=== PATIENT | female | born 1950 | race Caucasian/White ===

== ENCOUNTER → 2017-01-12 | Outpatient (CLI) | payer OTHER ==
[~2017-01-12] VITALS: Ht 162.6 cm; Wt 156.5 kg
[~2017-01-12] MED LIST: AMLODIPINE BESY10 MG PO; ASPIR 8181 MG PO; BENAZEPRIL-HCT1 EA10 PO; CARTIA XT240 M1 PO; CELEXA20 MG PO; CHLORTHALIDONE25 MG PO; DUONEB 2.5-0.5 M3 ML INH; EFFIENT10 MG PO; IMDUR 30 MG TAB30 M1 PO; LASIX 40 MG TAB40 M1 PO; LIPITOR 20 MG T20 M1 PO; LOPRESSOR50 PO; METFORMIN HCL500 MG PO; MOBIC15 MG PO; MULTAQ400 MG PO; NORCO 5-325 TA1 EACH PO; PRADAXA150 MG PO; PREDNISONE 10 M10 MG PO; PROAIR HFA8.5 GM; PROTONIX40 M1 PO; PULMICORT0.5 MG/21 INH; SPIRIVA INH; TIZANIDINE HCL4 M1 PO; VITAMIN D2000 UNIT PO; XOPENEX 0.63 MG/3 M1
--- NOTE | ~2017-01-12 | EKG ---
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: Harjit MONTALVO : 1950 Requested By: Mauri Goldberg Order Number: [id number] MD: Mauri Goldberg Measurements Intervals [place] Rate: 51 P: 19 [place]: 173 QRS: 19 QRSD: 116 T: 18 QT: 588 QTc: 542 Interpretive Statements Sinus rhythm Nonspecific intraventricular conduction delay Borderline repol abnrm, anterolateral leads Compared to ECG 02/24/2015 07:47:28 Intraventricular conduction delay now present Sinus bradycardia no longer present Sinus arrhythmia no longer present Electronically Signed On 01-12-2017 21:04:36 CDT by Mauri Goldberg [email or web address] <ELECTRONICALLY SIGNED> By: Mauri Goldberg MD 01/12/17 2104 1247 1247 Mauri Goldberg MD /EPI
--- NOTE | ~2017-01-12 | P ---
[facility] [address] [place] [address] PROCEDURE REPORT Name: CHELGABINORONNIE WANDER Room #: REG [facility]#: [id number] Admission: 01/12/17 Attend Phys: Mauri Goldberg MD Discharge: Date of : 48 Report #: [id number] THIS REPORT FOR: //name// CC: Koffi Goldberg DATE OF SERVICE: 01/12/2017 PROCEDURE: Cardioversion. PREOPERATIVE DIAGNOSIS: Atrial fibrillation. POSTOPERATIVE DIAGNOSIS: Atrial fibrillation. DESCRIPTION OF PROCEDURE: After informed consent, the patient was sedated by the anesthesiology service, underwent successful DC cardioversion with a 200 joule shock. There were no complications. CONCLUSIONS: Successful DC cardioversion with confucianist of sinus rhythm. By: 1345 1911 Mauri Goldberg MD /nt
[2017-01-12 10:46] LABS: HEMATOCRIT 39.3 % (37.0-47.0); MCH 31.4 pg (26.0-34.0); MCHC 33.2 g/dL (28.0-37.0); MCV 94.5 fL (80.0-100.0); RBC 4.16 mil/uL (4.20-5.00); RDW 15.2 % (10.5-14.5); WBC 7.9 thou/uL (4.0-11.0)
[2017-01-12 10:55] LABS: CALCIUM 9.2 mg/dL (8.5-10.1); CREATININE 1.1 mg/dL (0.6-1.0); POTASSIUM 3.9 mmol/L (3.5-5.1)
[2017-01-12 10:59] VITALS: BP 166/73
[2017-01-12 11:00] LABS: APTT 47.8 Seconds (24.5-32.8); INR 1.3
[2017-01-12 11:01] LABS: ALBUMIN 3.3 g/dL (3.4-5.0); TOTAL PROTEIN 7.5 g/dL (6.4-8.2)
[2017-01-12 11:04] LABS: PROTIME 13.3 Seconds (9.3-11.4)
== END | disposition home or self-care (01) ==
LOC: CATH 10:17
PROVIDERS: Internal Medicine Cardiovascular Disease
DX: I48.91 Unspecified atrial fibrillation (principal); I10 Essential (primary) hypertension; J45.909 Unspecified asthma, uncomplicated; K21.9 Gastro-esophageal reflux disease without esophagitis; Z98.890 Other specified postprocedural states; E66.01 Morbid (severe) obesity due to excess calories; M19.90 Unspecified osteoarthritis, unspecified site; Z95.1 Presence of aortocoronary bypass graft; J44.9 Chronic obstructive pulmonary disease, unspecified
CPT/HCPCS: 62110; 62900

== ENCOUNTER 2017-01-13 23:10 | Inpatient (IN) | payer OTHER ==
[~2017-01-13] VITALS: Ht 165.1 cm; Wt 154.0 kg
--- NOTE | ~2017-01-13 | HC ---
[facility] [place] [address] [place] [address] CONSULTATION Name: PATRICIORONNIE VIRAMONTES Room #: 424-P ADM IN M.R.#: [id number] Admission: 01/14/17 Attend Phys: Koffi Winston DO Discharge: Date of : 48 Report #: [id number] THIS REPORT FOR: //name// CC: Koffi Manuel DATE OF SERVICE: 01/14/2017 INDICATION: Chest pains. HISTORY OF PRESENT ILLNESS: This is a 66-year-old female presenting with dyspnea and chest discomfort. She has a history of CAD, COPD, paroxysmal atrial fibrillation presenting with dyspnea. The patient reports having dyspnea with mild levels of activity for the past few weeks. She did undergo cardioversion to sinus rhythm this past Sunday, which did not really alleviate her symptom of dyspnea. Over the weekend, she noticed more dyspnea and presented to [facility] for evaluation. She also reported having brief episodes of substernal chest discomfort, occurring at rest. She has noted some intermittent chills and fever. There is no history of PND, orthopnea, nausea or diarrhea. ALLERGIES: ATORVASTATIN. PAST MEDICAL HISTORY: CAD with stent placement to the diagonal artery in February 2015. Known to have severe stenosis in the distal left circumflex, medical therapy is recommended. History of bradycardia. Hypertension, hypercholesterolemia, morbid obesity, COPD on oxygen 2 liters at night, carotid artery disease. Paroxysmal atrial fibrillation, status post cardioversion. MEDICATIONS: Include benazepril/HCTZ 20/12.5 twice a day, metoprolol 25 mg twice a day, Protonix twice a day, Pradaxa 150 mg twice a day, Multaq 400 mg twice a day. SOCIAL HISTORY: Negative for tobacco use. FAMILY HISTORY: Negative for premature CAD. REVIEW OF SYSTEMS: A full 10-point review of systems performed. Only the pertinent positives and negatives are described in the HPI. PHYSICAL EXAMINATION: VITAL SIGNS: Blood pressure is 160/80, heart rate is 78 beats per minute. GENERAL APPEARANCE: This is an overweight female in no acute respiratory distress. HEAD AND EYES: Normocephalic. Sclerae are anicteric. ENT: Oral mucosa moist. [facility] [address] [place] [address] CONSULTATION Name: RONNIE CURRY Room #: 424-P ADM IN .R.#: [id number] Admission: 01/14/17 Attend Phys: Koffi Winston DO Discharge: Date of : 48 Report #: [id number] NECK: Supple, no JVD. LUNGS: Diminished breath sounds at the bases. CARDIAC: S1, S2 positive; 1/6 systolic murmur. ABDOMEN: Soft, bowel sounds positive. Nontender. EXTREMITIES: No cyanosis, trace bilateral lower extremity edema. NEUROLOGIC: Alert and oriented times 3 ECG reveals sinus rhythm, nonspecific IVCD, nonspecific T-wave abnormalities. LABORATORY VALUES: Troponin is negative. Sodium is 133, creatinine is 1.1. ASSESSMENT AND PLAN: 1. Respiratory failure, rule out chronic obstructive pulmonary disease exacerbation, await pulmonary consultation. Continue with antibiotics. 2. Chest pain, known to have a severe occlusion of the mid/distal circumflex artery, maybe related to hypoxic episodes. Would continue with medical therapy at this time. Since she recently underwent a cardioversion, I would not want to hold the anticoagulation medication. We will add longacting nitrates. 3. Paroxysmal atrial fibrillation. Continue with Pradaxa and Multaq. 4. Hypertension. Resume the LUCHO inhibitor. 5. Gastroesophageal reflux disease. Continue with Protonix. Thank you for allowing me to participate in the care of your patient. <ELECTRONICALLY SIGNED> By: Ivan Leach MD 01/15/17 0830 1118 1241 Ivan Leach MD /nt
--- NOTE | ~2017-01-13 | EKG ---
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: heena : 1950 Requested By: Sydni Montero Order Number: [id number] MD: Mauri Goldberg Measurements Intervals [place] Rate: 78 P: 41 ME: 180 QRS: 21 QRSD: 114 T: 12 QT: 464 QTc: 529 Interpretive Statements Sinus rhythm Borderline intraventricular conduction delay Borderline T wave abnormalities Compared to ECG 01/12/2017 12:47:22 T-wave abnormality now present Electronically Signed On 01-14-2017 11:13:28 CDT by Mauri Goldberg [email or web address] <ELECTRONICALLY SIGNED> By: Mauri Goldberg MD 01/14/17 1113 1052 1052 Mauri Goldberg MD /EPI
--- NOTE | ~2017-01-13 | HC ---
[facility] [place] [address] [place] [address] CONSULTATION Name: RONNIE CURRY Room #: 424-P ADM IN M.R.#: [id number] Admission: 01/14/17 Attend Phys: Koffi Winston DO Discharge: Date of : 48 Report #: [id number] THIS REPORT FOR: //name// CC: Koffi Manuel DATE OF SERVICE: 01/14/2017 PRIMARY CARE PHYSICIAN: Dr. Koffi Manuel. REFERRAL PHYSICIAN: Dr. Winston. REASON FOR REFERRAL: COPD. HISTORY OF PRESENT ILLNESS: The patient is a 66-year-old white female who presented to the [facility] with progressive dyspnea. She was subsequently transferred to [facility]. The patient has COPD. A pulmonary consultation was requested. The patient states that she has been short of breath, on and off for the past several weeks. The patient is followed longitudinally by Dr. Francesco Jenkins for COPD. She states that she has been having trouble over the last few weeks with increasing dyspnea on exertion. She was recently seen by her Cardiology, in fact last Sunday for cardioversion for atrial fibrillation. She did fairly well and was discharged home. Over the weekend, her dyspnea progressively worsened. The patient otherwise denies any fever, night sweats, chest pain or productive cough. The patient did note chills. Otherwise, no recent nausea or vomiting. PAST MEDICAL HISTORY: Notable for COPD/asthma overlap syndrome, hypertension, coronary artery disease with history of bradycardia, hyperlipidemia, gastroesophageal reflux disease, morbid obesity. Previous echocardiogram showed ejection fraction of 65%. Chronic back pain, osteoarthritis. ANGEL, on CPAP. Atrial fibrillation as mentioned above, undergone cardioversion on 01/12/2017. PAST SURGICAL HISTORY: Gastroplasty which was stated to be unsuccessful. Left total knee replacement, laparoscopic cholecystectomy, right knee metal plate placement. ALLERGIES: ATORVASTATIN WHICH CAUSES SEVERE RASH. HOME MEDICATIONS: Include benazepril, tizanidine, Lopressor, [place] 5 mg, ProAir, Xopenex nebulizer 0.63 mg p.r.n., Protonix, Pradaxa, Multaq, Spiriva. FAMILY HISTORY: Noncontributory. SOCIAL HISTORY: The patient is a lifetime nonsmoker, drinks occasional wine. [address] [address] CONSULTATION Name: RONNIE CURRY Room #: 424-P [facility] IN ..#: [id number] Admission: 01/14/17 Attend Phys: Koffi Winston DO Discharge: Date of : 48 Report #: [id number] She is . FAMILY HISTORY: Notable for mother who at the age of 68 due to heart disease. Father at the age of 45 due to myocardial infarction. REVIEW OF SYSTEMS: As mentioned above. Otherwise, 10-point system review negative. PHYSICAL EXAMINATION: GENERAL: She is awake, alert, in no distress. VITAL SIGNS: Temperature is 98 degrees Fahrenheit, pulse is 76, respiratory rate is 20, blood pressure is 160/80 mmHg, saturation is 97%. HEENT: Normocephalic, atraumatic. NECK: Supple, without any lymphadenopathy or thyromegaly. CHEST: Breath sounds are fair with mild expiratory wheezes. No rales. CARDIOVASCULAR: Normal S1, S2. There are no murmurs or gallop. There is no JVD. There is no carotid bruit. Pulses are 2+/4+ bilaterally. ABDOMEN: Soft, nontender, obese. No organomegaly or masses felt. GENITOURINARY: Deferred. RECTAL: Deferred. EXTREMITIES: There is no edema, cyanosis or clubbing. DIAGNOSTIC DATA: CT chest angiogram shows no evidence of pulmonary embolus. Atelectasis noted in the lingula in the left lower lobe, cardiomegaly is noted. Troponin is normal. D-dimer is 0.57. EKG shows borderline T-wave abnormalities, otherwise no acute ischemic changes. TSH is normal. Electrolytes are normal except for sodium 133, potassium 3.8, BUN 25, creatinine is 1.1. Liver function test is grossly unremarkable. WBC 7800, hemoglobin is 12.3, platelets are normal. Albumin 3.0. IMPRESSION: 1. Acute hypoxic respiratory failure in this 66-year-old white female, secondary to exacerbation of COPD/asthma. CT chest also suggest pulmonary edema. Acute on chronic heart failure is also suggested. 2. COPD/asthma overlap syndrome. 3. ANGEL on CPAP. The patient also wears 2 liters of O2 at night. 4. Probable acute on chronic diastolic heart failure. 5. Paroxysmal atrial fibrillation, on chronic anticoagulation, currently on Pradaxa and Multaq. 6. Chest pain as mentioned above. 7. Hypertension. 8. Gastroesophageal reflux disease. 9. Morbid obesity. RECOMMENDATION: Would suggest bronchodilators, corticosteroids, and broad spectrum antibiotics. DVT and GI prophylaxis will be addressed. Continue home [facility] [address] [place] [address] CONSULTATION Name: RONNIE CURRY Room #: 424-P ADM IN M.R.#: [id number] Admission: 01/14/17 Attend Phys: Koffi Winston DO Discharge: Date of : 48 Report #: [id number] CPAP during sleep and p.r.n. Cardiology has been consulted. The patient would benefit from counseling regarding dietary program to achieve an ideal body weight. Thank you for this consultation. <ELECTRONICALLY SIGNED> By: Juaquin Almazan MD 01/15/17 1920 1607 1748 Juaquin Almazan MD /nt
[~2017-01-13 23:10] MED LIST changes: -DUONEB 2.5-0.5 M3 ML INH; -IMDUR 30 MG TAB30 M1 PO; -LASIX 40 MG TAB40 M1 PO; -METFORMIN HCL500 MG PO; -PREDNISONE 10 M10 MG PO; -PULMICORT0.5 MG/21 INH
[2017-01-14 01:46] VITALS: BP 164/65
[2017-01-14 03:12] VITALS: BP 160/76
[2017-01-14 03:31] LABS: HEMOGLOBIN 12.3 gm/dL (12.0-15.0); MCH 31.1 pg (26.0-34.0); MCHC 33.3 g/dL (28.0-37.0); MCV 93.5 fL (80.0-100.0); RBC 3.96 mil/uL (4.20-5.00); RDW 15.3 % (10.5-14.5); WBC 8.7 thou/uL (4.0-11.0)
[2017-01-14 03:38] LABS: CALCIUM 8.8 mg/dL (8.5-10.1); CREATININE 1.1 mg/dL (0.6-1.0); POTASSIUM 3.8 mmol/L (3.5-5.1)
[2017-01-14 03:51] LABS: TOTAL BILIRUBIN 1.2 mg/dL (<0.1-1.0); TOTAL PROTEIN 7.2 g/dL (6.4-8.2)
[2017-01-14 07:24] VITALS: BP 166/78
[2017-01-14 12:25] VITALS: BP 185/87
[2017-01-14 15:06] VITALS: BP 162/79
[2017-01-14 20:00] VITALS: BP 166/80
[2017-01-15 04:37] VITALS: BP 139/76
[2017-01-15 06:16] LABS: HEMATOCRIT 32.3 % (37.0-47.0); HEMOGLOBIN 10.7 gm/dL (12.0-15.0); MCH 31.7 pg (26.0-34.0); RBC 3.37 mil/uL (4.20-5.00); RDW 15.7 % (10.5-14.5)
[2017-01-15 06:18] LABS: MANUAL DIFF YES
[2017-01-15 06:31] LABS: CALCIUM 8.5 mg/dL (8.5-10.1); CREATININE 1.2 mg/dL (0.6-1.0); POTASSIUM 4.2 mmol/L (3.5-5.1)
[2017-01-15 07:47] VITALS: BP 149/80
[2017-01-15 08:01] LABS: ABSOLUTE NEUTROPHILS 11.3 thou/uL (1.4-8.2); TOTAL CELL COUNT 100
[2017-01-15 08:02] LABS: ANISOCYTOSIS SLIGHT; POLYCHROMASIA OCCASIONAL
[2017-01-15 08:46] LABS: PLATELET COUNT 150 thou/uL (150-400); PLATELET ESTIMATE NORMAL
[2017-01-15 15:52] VITALS: BP 113/56
[2017-01-15 20:00] VITALS: BP 144/74
[2017-01-16 04:00] VITALS: BP 127/66
[2017-01-16] MEDS ORDERED: DUONEB 2.5-0.5 M3 ML INH (14:48)
[2017-01-16] MEDS ORDERED: IMDUR 30 MG TAB30 M1 PO (14:49)
[2017-01-16] MEDS ORDERED: LASIX 40 MG TAB40 M1 PO (14:49)
[2017-01-16] MEDS ORDERED: PULMICORT0.5 MG/21 INH (14:49)
[2017-01-16] MEDS ORDERED: METFORMIN HCL500 MG PO (14:50)
[2017-01-16] MEDS ORDERED: PREDNISONE 10 M10 MG PO (14:50)
[2017-01-16 15:20] VITALS: BP 156/81
== END 2017-01-16 16:30 | disposition home or self-care (01) | DRG 291 ==
LOC: 4E 23:10 → ENTRNSPT 01-16 15:38 → EDTRNSPTSTS 01-16 15:43 → 4E 01-16 16:30
PROVIDERS: Family Medicine; Nurse Practitioner Family
DX: I11.0 Hypertensive heart disease with heart failure (principal); J96.01 Acute respiratory failure with hypoxia; J44.1 Chronic obstructive pulmonary disease with (acute) exacerbation; J45.901 Unspecified asthma with (acute) exacerbation; Z68.43 Body mass index [BMI] 50.0-59.9, adult; I50.33 Acute on chronic diastolic (congestive) heart failure; I25.10 Atherosclerotic heart disease of native coronary artery without angina pectoris; Z96.652 Presence of left artificial knee joint; E78.5 Hyperlipidemia, unspecified; E66.01 Morbid (severe) obesity due to excess calories; K21.9 Gastro-esophageal reflux disease without esophagitis; M19.90 Unspecified osteoarthritis, unspecified site; G47.33 Obstructive sleep apnea (adult) (pediatric); I48.0 Paroxysmal atrial fibrillation; E78.00 Pure hypercholesterolemia, unspecified; Z79.01 Long term (current) use of anticoagulants; Z87.01 Personal history of pneumonia (recurrent); Z88.8 Allergy status to other drugs, medicaments and biological substances; Z90.49 Acquired absence of other specified parts of digestive tract; Z95.5 Presence of coronary angioplasty implant and graft
CPT/HCPCS: 10084

== ENCOUNTER → 2017-07-25 | Outpatient (CLI) | payer OTHER ==
[~2017-07-25] VITALS: Ht 165.1 cm; Wt 144.7 kg
[~2017-07-25] MED LIST changes: +BENAZEPRIL HCL10 MG PO; +DUONEB 2.5-0.5 M3 ML INH; +FOSAMAX 70 MG T70 MG PO; +IMDUR 30 MG TAB30 M1 PO; +LASIX 40 MG TAB40 M1 PO; +METFORMIN HCL500 MG PO; +PREDNISONE 10 M10 MG PO; -PROAIR HFA8.5 GM; +PROAIR HFA8.5 GM INH; +PULMICORT0.5 MG/21 INH; +TOPROL XL25 MG PO; +TRELEGY ELLIPT1 EACH INH; +VITAMIN D1000 UNI1 PO; +VITAMIN D250000 UNIT PO; +XARELTO20 MG PO
--- NOTE | ~2017-07-25 | EKG ---
[address] [address] ELECTROCARDIOGRAM REPORT Name: RONNIE CURRY Room #: REG [facility]#: [id number] Admission: 07/25/17 Attend Phys: Mauri Goldberg MD Discharge: Date of : 48 Report #: [id number] THIS REPORT FOR: //name// [facility] Test Date: 2017-07-25 Test Time: 10:52:17 Pat Name: RONNIE CURRY Department: Room: Gender: F Director [employer]: CHARLES : 1950 Requested By: Mauri Goldberg Order Number: [id number] MD: Vj Moise Measurements Intervals [place] Rate: 63 P: 7 MD: 57 QRS: 17 QRSD: 118 T: 7 QT: 503 QTc: 516 Interpretive Statements Sinus rhythm Short MD interval Nonspecific intraventricular conduction delay Nonspecific ST and T wave abnormality Prolonged QT interval Compared to ECG 01/14/2017 10:52:48 QT interval has lengthened nonspecific change in the ST and T-wave segments Electronically Signed On 07-25-2017 16:50:12 CDT by Vj Moise [email or web address] <ELECTRONICALLY SIGNED> By: Vj Moise MD, FAC 07/25/17 1650 1052 1052 Vj Moise MD, [facility] /EPI
[2017-07-25 10:24] VITALS: BP 179/79
[2017-07-25 10:37] LABS: HEMOGLOBIN 12.9 gm/dL (12.0-15.0); MCH 30.9 pg (26.0-34.0); MCV 93.7 fL (80.0-100.0); RBC 4.16 mil/uL (4.20-5.00); RDW 14.7 % (10.5-14.5); WBC 8.2 thou/uL (4.0-11.0)
[2017-07-25 10:43] LABS: CALCIUM 9.4 mg/dL (8.5-10.1); CREATININE 1.2 mg/dL (0.6-1.0); POTASSIUM 4.3 mmol/L (3.5-5.1)
[2017-07-25 10:53] LABS: INR 1.3
[2017-07-25 10:58] LABS: PROTIME 12.9 Seconds (9.3-11.4)
[2017-07-25 10:59] LABS: APTT 46.9 Seconds (24.5-32.8)
== END | disposition home or self-care (01) ==
LOC: CATH 06:38
PROVIDERS: Internal Medicine Cardiovascular Disease
DX: I48.91 Unspecified atrial fibrillation (principal); Z53.8 Procedure and treatment not carried out for other reasons; I11.0 Hypertensive heart disease with heart failure; I25.10 Atherosclerotic heart disease of native coronary artery without angina pectoris; I50.9 Heart failure, unspecified; E78.5 Hyperlipidemia, unspecified; J44.9 Chronic obstructive pulmonary disease, unspecified; E11.9 Type 2 diabetes mellitus without complications; G47.33 Obstructive sleep apnea (adult) (pediatric); M19.90 Unspecified osteoarthritis, unspecified site; E66.01 Morbid (severe) obesity due to excess calories; Z90.49 Acquired absence of other specified parts of digestive tract; Z98.890 Other specified postprocedural states; Z95.5 Presence of coronary angioplasty implant and graft; Z79.899 Other long term (current) drug therapy

== ENCOUNTER → 2017-08-14 | Outpatient (CLI) | payer OTHER ==
[~2017-08-14] MED LIST changes: +PROAIR HFA8.5 GM; -PROAIR HFA8.5 GM INH; -TOPROL XL25 MG PO; -VITAMIN D1000 UNI1 PO; -XARELTO20 MG PO
== END ==
LOC: RAD 06:41 → LABMALL 06:41 → RAD 16:04
PROVIDERS: Surgery
DX: I10 Essential (primary) hypertension (principal); I48.91 Unspecified atrial fibrillation; M47.896 Other spondylosis, lumbar region; E66.01 Morbid (severe) obesity due to excess calories; G47.33 Obstructive sleep apnea (adult) (pediatric); R63.4 Abnormal weight loss; J44.9 Chronic obstructive pulmonary disease, unspecified; E11.9 Type 2 diabetes mellitus without complications; L51.1 Stevens-Johnson syndrome; E78.5 Hyperlipidemia, unspecified; R10.10 Upper abdominal pain, unspecified; Z98.890 Other specified postprocedural states; Z90.49 Acquired absence of other specified parts of digestive tract

== ENCOUNTER → 2017-08-31 | Outpatient (CLI) | payer OTHER | LOC: PET 06:52 | DX: R59.1 Generalized enlarged lymph nodes (principal) ==

== ENCOUNTER → 2017-09-18 | Outpatient (CLI) | payer OTHER ==
[~2017-09-18] VITALS: Ht 165.1 cm; Wt 143.8 kg
[~2017-09-18] MED LIST changes: -PROAIR HFA8.5 GM; +PROAIR HFA8.5 GM INH; +TOPROL XL25 MG PO; +VITAMIN D1000 UNI1 PO; +XARELTO20 MG PO
--- NOTE | ~2017-09-18 | O ---
[address] [address] OPERATIVE REPORT Name: RONNIE CURRY Room #: REG [facility]#: [id number] Admission: 09/18/17 Attend Phys: Alan Hahn MD, F Discharge: Date of : 48 Report #: [id number] THIS REPORT FOR: //name// CC: FAM unknown Koffi Burns DATE OF SERVICE: 09/18/2017 PREOPERATIVE DIAGNOSES: 1. Super morbid obesity (body mass index 53), status post previous unknown bariatric operation. 2. Obstructive sleep apnea. 3. Chronic obstructive pulmonary disease. 4. Type 2 diabetes mellitus. 5. Atrial fibrillation. 6. Hypertension. 7. Hyperlipidemia. POSTOPERATIVE DIAGNOSES: 1. Super morbid obesity (body mass index 53), status post previous unknown bariatric operation. 2. Obstructive sleep apnea. 3. Chronic obstructive pulmonary disease. 4. Type 2 diabetes mellitus. 5. Atrial fibrillation. 6. Hypertension. 7. Hyperlipidemia. PROCEDURE: Esophagogastroduodenoscopy. SURGEON: Alan Hahn M.D. ANIMAL SKINNER: None. ANESTHESIA: Sedation/monitored anesthetic care (90 mg propofol, 35 mg ketamine). ESTIMATED BLOOD LOSS: None. SPECIMENS: None. COMPLICATIONS: None appreciated. INDICATIONS FOR PROCEDURE: This is a super morbidly obese female, patient of [address] [address] OPERATIVE REPORT Name: RONNIE CURRY Room #: REG [facility]#: [id number] Admission: 09/18/17 Attend Phys: Alan Hahn MD, F Discharge: Date of : 48 Report #: [id number] Koffi Manuel, who began having difficulty with obesity post-. She ultimately underwent a bariatric operation in the , which she describes as a stapling-type operation. She denies having had a gastric bypass. She lost over 100 pounds before gaining her weight back slowly. She improved her weight to as low as 192 pounds, with a maximum weight of 345 pounds. She weighed 321 pounds at her last office visit. Prior to and since her bariatric operation, she has tried numerous weight loss programs and plans, including specialized diets, exercises and medications. Any amount of weight she had lost, she quickly regained plus additional weight after stopping the modality. She was evaluated with barium upper GI, which showed surgical changes, but an otherwise normal-appearing stomach that was not significantly decreased in size. She also underwent a CT of the abdomen and pelvis, which showed a nodule in the portacaval region. This was followed by a PET CT, which showed reactive lymphadenopathy changes as a result of her previous operation. The patient presents now for further evaluation of her stomach with an EGD. OPERATIVE FINDINGS: The esophagus was normal down to the GE junction and Z-line measured at 38 cm from the teeth. The Z line was slightly irregular; however, there were no overt esophagitis changes. Upon entrance into the fundus/upper body of the stomach, the stomach itself did seem slightly constricted. I was able to advance the scope down into the more distal stomach, where the body and prepyloric area appeared otherwise normal, with mild inflammatory changes at the pylorus. The duodenum was normal down to the third portion. There were no polyps, masses, diverticula or ulcers seen. I also was able to retroflex the scope within the antrum of the stomach and had visualization of the lower body and upper body, where more surgical changes were present. A permanent suture was seen endoluminally in the mid body of the stomach and upon closer inspection, an associated staple was also present. Despite her having had a previous stapling-type operation, I was able to retroflex the scope enough in the upper body of the stomach to see the cardia. Hiatal hernia was not appreciable. Overall, the size of the stomach did not seem to be significantly decreased from her previous bariatric operation. DESCRIPTION OF PROCEDURE IN DETAIL: After the risks, benefits and expectations of the operation were discussed in detail with the patient, informed consent was obtained. The patient was identified in the preoperative holding area. She was then taken to the procedure room and she was placed in the left lateral decubitus position. A bite block was placed. A time-out was performed to identify the correct patient and procedure. The patient was then given sedation by Anesthesia and the gastroscope was inserted into the patient's oropharynx and passed down the esophagus into the stomach and beyond the pylorus to the third portion of the duodenum. The scope was then slowly withdrawn. Findings are as noted above. With the scope withdrawn into the antrum of the stomach, the scope was retroflexed and a retrograde view of the lower body, upper body and cardia was seen. The scope was then straightened and slowly withdrawn. The suture was measured at 45 cm from the teeth. The stomach was decompressed and the scope [facility] [address] [place] [address] OPERATIVE REPORT Name: RONNIE CURRY Room #: REG [facility]#: [id number] Admission: 09/18/17 Attend Phys: Alan Hahn MD, F Discharge: Date of : 48 Report #: [id number] was slowly withdrawn through the normal-appearing esophagus. The patient tolerated the procedure well. She was awakened and returned to the holding area in stable condition. IMPRESSION: My recommendation is that the patient keep her scheduled appointment with me. She may be a candidate for revisional sleeve gastrectomy. By: 1044 1148 Alan Hahn MD, FACS /nt
== END | disposition home or self-care (01) ==
LOC: GI 06:57
DX: E66.01 Morbid (severe) obesity due to excess calories (principal); I10 Essential (primary) hypertension; E11.9 Type 2 diabetes mellitus without complications; I48.91 Unspecified atrial fibrillation; E78.5 Hyperlipidemia, unspecified; J44.9 Chronic obstructive pulmonary disease, unspecified; G47.33 Obstructive sleep apnea (adult) (pediatric); K21.9 Gastro-esophageal reflux disease without esophagitis; M19.90 Unspecified osteoarthritis, unspecified site; Z79.899 Other long term (current) drug therapy; Z79.01 Long term (current) use of anticoagulants; Z68.43 Body mass index [BMI] 50.0-59.9, adult; Z98.890 Other specified postprocedural states; Z98.84 Bariatric surgery status; Z95.5 Presence of coronary angioplasty implant and graft; Z96.653 Presence of artificial knee joint, bilateral; Z90.49 Acquired absence of other specified parts of digestive tract; Z88.8 Allergy status to other drugs, medicaments and biological substances
CPT/HCPCS: 62110; 62900

== ENCOUNTER → 2017-12-04 | Outpatient (CLI) | payer OTHER ==
[~2017-12-04] MED LIST changes: +BENAZEPRIL 10 M10 MG PO; +CENTRUM SILVER1 EAC4 PO
--- NOTE | ~2017-12-04 | EKG ---
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 : 1950 Requested By: Alan Hahn Order Number: [id number] MD: Measurements Intervals [place] Rate: 81 P: [place]: QRS: 17 QRSD: 115 T: 183 QT: 386 QTc: 448 Interpretive Statements Atrial fibrillation LVH with secondary repolarization abnormality Compared to ECG 07/25/2017 10:52:17 Left ventricular hypertrophy now present Early repolarization now present Sinus rhythm no longer present Short [place] interval no longer present Intraventricular conduction delay no longer present ST (T wave) deviation no longer present Prolonged QT interval no longer present [email or web address] By: 1209 1209 [facility] [place] /EPI
[2017-12-04 13:00] LABS: ABSOLUTE NEUTROPHILS 4.7 thou/uL (1.4-8.2); BASOPHILS 1.3 % (0.0-2.0); EOSINOPHILS 1.8 % (0.0-3.0); HEMATOCRIT 43.7 % (37.0-47.0); HEMOGLOBIN 14.7 gm/dL (12.0-15.0); LYMPHOCYTES 26.1 % (24.0-44.0); MCH 31.7 pg (26.0-34.0); MCHC 33.8 g/dL (28.0-37.0); MCV 94.1 fL (80.0-100.0); MONOCYTES 7.3 % (1.0-8.0); PLATELET COUNT 216 thou/uL (150-400); POLYS 63.5 % (36.0-66.0); RBC 4.65 mil/uL (4.20-5.00); RDW 14.6 % (10.5-14.5); WBC 7.5 thou/uL (4.0-11.0)
[2017-12-04 13:14] LABS: ALBUMIN 3.7 g/dL (3.4-5.0); CALCIUM 9.5 mg/dL (8.5-10.1); CREATININE 1.1 mg/dL (0.6-1.0); POTASSIUM 4.7 mmol/L (3.5-5.1); TOTAL BILIRUBIN 0.7 mg/dL (<0.1-1.0); TOTAL PROTEIN 7.4 g/dL (6.4-8.2)
== END ==
LOC: CV 11:43
PROVIDERS: Surgery
DX: Z01.818 Encounter for other preprocedural examination (principal); I48.91 Unspecified atrial fibrillation

== ENCOUNTER 2018-01-16 12:49 | Inpatient (IN) | payer OTHER ==
[~2018-01-16] VITALS: Ht 162.6 cm; Wt 133.9 kg
--- NOTE | ~2018-01-16 | H ---
[facility] [place] [address] [place] [address] HISTORY AND PHYSICAL Name: PATRICIORONNIE VIRAMONTES Room #: 352-P ADM IN M.R.#: [id number] Admission: 01/16/18 Attend Phys: Giovanna Paredes Discharge: Date of : 48 Report #: [id number] THIS REPORT FOR: //name// CC: Isaac Manuel DATE OF SERVICE: 01/16/2018 CHIEF COMPLAINT: Abdominal pain. HISTORY OF PRESENT ILLNESS: The patient is a 67-year-old female admitted from [facility] for treatment of abdominal pain and related infection. Her history is complicated and that she had undergone laparoscopic sleeve gastrectomy with EGD and laparoscopic lysis of adhesions on 12/06. She then discharged home and unfortunately suffered a fall and then developed abdominal pain. She was readmitted to the hospital with diagnosis of sepsis related to GI bleed post-gastric sleeve procedure and intra-abdominal abscess. There was concern of endovascular leak. She was attempted at [facility] for EGD placement of stent over the gastric leak area, but due to inflammation and postoperative changes, this was not accessible. She then transferred to the LTAC facility for ongoing care with IV antibiotics and TPN. She is gradually stabilized and improved to some degree. She still remains n.p.o. and the hope now is that with improvement of abdominal findings on CT, she could proceed with a jejunostomy tube placement for distal feeding and medication access. She is admitted for surgical and ID evaluation. PAST MEDICAL HISTORY: Coronary artery disease, COPD, obstructive sleep apnea and uses CPAP, hypertension, paroxysmal AFib, carotid stenosis, she had a history of GI bleed. PAST SURGICAL HISTORY: As above. FAMILY HISTORY: Noncontributory. SOCIAL HISTORY: No chronic alcohol or tobacco use. ALLERGIES: LIPITOR and she is intolerant to STATINS. MEDICATIONS: Please see the list from the facility, it is unavailable currently. REVIEW OF SYSTEMS: Denies headache, chest pain, shortness of breath, nausea, vomiting, dysuria, myalgias, syncope or fall. OBJECTIVE: VITAL SIGNS: Per the nursing note. [facility] [address] [place] [address] HISTORY AND PHYSICAL Name: PATRICIORONNIE Room #: 352-P [facility] IN .R.#: [id number] Admission: 01/16/18 Attend Phys: Giovanna Paredes Discharge: Date of : 48 Report #: [id number] GENERAL: She is awake and alert, in no distress, sitting on the edge of the bed. HEAD AND NECK: Unremarkable. LUNGS: Clear. HEART: Regular. ABDOMEN: Obese, soft, normoactive bowel sounds. EXTREMITIES: No cyanosis, clubbing or edema. NEUROLOGIC: Motor strength 4/5 throughout. ASSESSMENT: 1. Abdominal pain. 2. Intra-abdominal abscess. 3. Recent gastric sleeve gastrectomy with bowel leak. 4. Chronic obstructive pulmonary disease. 5. Hypertension. 6. Obstructive sleep apnea, on CPAP. PLAN: I have spoken with Dr. Kan Hummel regarding the plan and we will obtain a CT of the abdomen to gauge the remaining intra-abdominal abscesses. Dr. Hahn will assess her and apparently has her scheduled for jejunostomy tube placement. Unasyn and other medications to continue. <ELECTRONICALLY SIGNED> By: Ace Thakur MD 01/17/18 1058 1350 1414 Ace Thakur MD /nt
--- NOTE | ~2018-01-16 | D ---
[facility] [place] [address] DISCHARGE SUMMARY Name: PATRICIORONNIE VIRAMONTES Room #: 363-P [facility] IN M.R.#: [id number] Admission: 01/16/18 Attend Phys: Giovanna Paredes Discharge: 01/29/18 Date of : 48 Report #: [id number] THIS REPORT FOR: //name// CC: Isaac Manuel FINAL DIAGNOSES: 1. Abdominal pain. 2. Resolving intra-abdominal abscess. 3. Gastrointestinal bowel leak due to previous gastroplasty. 4. Morbid obesity. 5. Moderate protein-calorie malnutrition. 6. Anemia of chronic disease. 7. Morbid obesity. HOSPITAL COURSE: The patient was admitted electively for placement of a jejunostomy tube for nutritional access. She has previously undergone treatment for intra-abdominal abscess related to previous gastroplasty. This was treated at [facility] facility. Her stay here was planned for placement of a J-tube, which Dr. Hhan placed. The following day, it had migrated out of position and she went back to the OR for revision. She had no other complications during her stay. She finished her course of IV antibiotics and converted to oral. A CHRIST drain was left in place. TPN was discontinued. Therapies were ordered. She had no other complications. PHYSICAL EXAMINATION: GENERAL: On the day of discharge, she was awake and alert. LUNGS: Clear. HEART: Regular. ABDOMEN: Soft, normoactive bowel sounds. She was tolerating tube feeding. EXTREMITIES: No edema. DISPOSITION: She is discharged to [facility] n.p.o. status with jejunostomy tube feeding. I signed her transfer medication. She will have in-house physician manage her care and physical and occupational therapy. Follow up with Dr. Hahn in 2 weeks for the next stage of her treatment. ADDENDUM Her discharge was held on 01/22/2018 due to J-tube malfunction. She had to go back to the OR for revision. Please see those notes. Following this, she did well without any incident. She was watched another week and the tube feeding was flowing without complication. Other medications were continued. PHYSICAL EXAMINATION: On the day of discharge: GENERAL: She was awake and alert. [address] [address] DISCHARGE SUMMARY Name: RONNIE CURRY Room #: 363-P [facility] IN ..#: [id number] Admission: 01/16/18 Attend Phys: Giovanna Paredes Discharge: 01/29/18 Date of : 48 Report #: [id number] VITAL SIGNS: Stable. LUNGS: Clear. HEART: Regular. ABDOMEN: Soft, normoactive bowel sounds. EXTREMITIES: No edema and J-tube is in place. DISPOSITION: Again, she is discharged to [facility], n.p.o. with tube feeding. PT, OT. Follow up with Dr. Hahn in a couple of weeks. Meds are Augmentin twice a day for 5 days, hydrocodone elixir p.r.n., Pepcid, scopolamine patch. <ELECTRONICALLY SIGNED> By: Ace Thakur MD 02/04/18 1250 1057 [id number] Ace Thakur MD /nt
--- NOTE | ~2018-01-16 | O ---
[facility] [place] [place] [address] OPERATIVE REPORT Name: RONNIE CURRY Room #: 352-P ADM IN M.R.#: [id number] Admission: 01/16/18 Attend Phys: Giovanna Paredes Discharge: Date of : 48 Report #: [id number] THIS REPORT FOR: //name// CC: Dante Manuel MD DATE OF SERVICE: 01/17/2018 SURGEON: Alan Hahn MD RN OBGYN: Reynaldo Adrian MD PREOPERATIVE DIAGNOSES: 1. Need for enteral nutrition. 2. Intraabdominal abscess with gastric leak. 3. Status post revisional bariatric surgery. 4. Super morbid obesity (body mass index 51). 5. Chronic obstructive pulmonary disease. 6. Coronary artery disease. 7. Atrial fibrillation. 8. Hypertension. 9. Congestive heart failure. 10. Gastroesophageal reflux disease. 11. Obstructive sleep apnea with CPAP use. POSTOPERATIVE DIAGNOSES: 1. Need for enteral nutrition. 2. Intraabdominal abscess with gastric leak. 3. Status post revisional bariatric surgery. 4. Super morbid obesity (body mass index 51). 5. Chronic obstructive pulmonary disease. 6. Coronary artery disease. 7. Atrial fibrillation. 8. Hypertension. 9. Congestive heart failure. 10. Gastroesophageal reflux disease. 11. Obstructive sleep apnea with CPAP use. PROCEDURE: 1. Diagnostic laparoscopy. 2. Laparoscopic assisted jejunostomy placement. ANESTHESIA: General endotracheal anesthesia and local anesthetic. [facility] [place] [address] OPERATIVE REPORT Name: RONNIE CURRY Room #: 352-P ADM IN M.R.#: [id number] Admission: 01/16/18 Attend Phys: Giovanna Paredes Discharge: Date of : 48 Report #: [id number] ESTIMATED BLOOD LOSS: 5 mL. SPECIMEN: None. COMPLICATIONS: None appreciated. INDICATIONS FOR PROCEDURE: This is a 67-year-old female patient who has a remote history of a vertical stapled gastroplasty in the 1970s. She lost weight initially from the operation; however, she regained a significant portion of her weight back plus additional weight. She was ultimately cleared for revisional laparoscopic bariatric surgery. She underwent surgery, which took place approximately 8 weeks ago. She was hospitalized for over a week after her operation as she was having difficulty swallowing, but ultimately was able to take in fluids. This was confirmed both on her postoperative day #1 swallow study as well as on an oral contrast CT scan 5-6 days after her operation. After her dismissal, she returned to the hospital with abdominal pain and imaging studies showed a proximal gastric staple line leak. Soon thereafter, she was sent for EGD with stent placement; however, this was unsuccessful as the gastric lumen had been obliterated secondary to inflammatory change from the abscess. The abscess had been drained by Interventional Radiology. She was transferred to [facility] (a long-term acute care facility) where she received ongoing TPN and was kept strictly n.p.o. Another attempt at endoscopic stent placement was unsuccessful 4 weeks later. The patient has been transferred to [facility] and presents now for laparoscopic-assisted jejunostomy placement as long-term TPN is not recommended. DESCRIPTION OF PROCEDURE IN DETAIL: After the risks, benefits and expectations of the operation were discussed in detail with the patient, informed consent was obtained. The patient was identified in the preoperative holding area. The patient was given IV antibiotics as documented in the chart in line with [facility] metrics. The patient was then taken to the operating room and she was placed in the supine position. SCDs were placed on the patient's bilateral lower extremities and pneumatic compression was initiated. The patient was then given IV sedation and she was intubated without incident. Her abdomen was prepped and draped in the standard sterile fashion. A time-out was performed to identify the correct patient and procedure. Local anesthetic was infiltrated into the skin and subcutaneous tissue in the right subcostal area where a small transverse incision was made. A 5 mm Visiport was placed intraperitoneally with a 0-degree angled laparoscope. Pneumoperitoneum was achieved with insufflation of carbon dioxide to 15 mmHg. A 30-degree angled laparoscope was then inserted. Additional 5 mm ports were placed in the right lateral and right lower quadrant under direct visualization after local anesthetic was infiltrated into the skin and subcutaneous tissue and appropriately sized incisions were made. Upon entering the abdominal cavity, intraabdominal adhesions were present. In order to gain access to the left [address] [address] OPERATIVE REPORT Name: CHELGABINORONNIE WANDER Room #: 352-P ADM IN M.R.#: [id number] Admission: 01/16/18 Attend Phys: Giovanna Paredes Discharge: Date of : 48 Report #: [id number] abdomen, some lysis of adhesions was necessary with sharp dissection. The transverse colon was plastered to the anterior abdominal wall. Inflammatory changes superior to that were present. The proximal jejunum was identified and this was run proximally to the ligament of Treitz. An area was chosen approximately 20 cm distal to the ligament of Treitz for jejunostomy placement. Local anesthetic was infiltrated into the skin and subcutaneous tissue in the left abdomen where a clear spot was present. The needle containing the T-fastener was then advanced into the abdominal cavity and directly into the bowel. The T-fastener was then deployed endoluminally. Two other T-fasteners were placed in a triangulated fashion using a similar technique. Through the center of the 3 T-fasteners, a small transverse incision was made in the skin. A Cook needle was then advanced through the abdominal wall and directly into the center of the T-fasteners. A guidewire was then advanced distally and the needle was withdrawn over the guidewire. A serial dilator containing a tear-away sheath was then advanced over the guidewire. The guidewire was removed. The jejunostomy tube was lubricated and advanced into the tear-away sheath. The sheath was fractured and peeled away as per design. The balloon had been tested externally and was inflated endoluminally so as not to occlude the entire lumen of the small bowel. Traction was then applied to the T-fastener sutures to advance the small bowel to the posterior aspect of the abdominal wall. The bolsters were tightened on the skin externally. The jejunostomy tube was withdrawn until the balloon was occluding the opening. The J-tube bolster was then secured with a 2-0 nylon suture externally. The tube was tested for patency with saline. After ensuring final hemostasis, the abdominal cavity was desufflated and the ports were removed. The abdominal cavity had been desufflated. Interrupted subcuticular 4-0 Monocryl sutures and Dermabond were used to close the skin incisions. The patient tolerated the procedure well. She was awakened, extubated, and taken to the recovery room in stable condition with no apparent intraoperative complications. <ELECTRONICALLY SIGNED> By: Alan Hahn MD, FACS 01/20/18 1017 1649 [id number] Alan Hahn MD, FACS /nt
--- NOTE | ~2018-01-16 | O ---
[facility] [place] [address] OPERATIVE REPORT Name: RONNIE CURRY Room #: 352-P ADM IN M.R.#: [id number] Admission: 01/16/18 Attend Phys: Giovanna Paredes Discharge: Date of : 48 Report #: [id number] THIS REPORT FOR: //name// CC: Isaac Hummel DATE OF SERVICE: 01/18/2018 SURGEON: Alan Hahn MD CUSHION INSTALLER: Isaac Milton DO PREOPERATIVE DIAGNOSES: 1. Dislodged jejunostomy tube. 2. Need for enteral nutrition. 3. Intra-abdominal abscess with gastric leak. 4. Super morbid obesity (BMI 51). 5. Chronic obstructive pulmonary disease. 6. Coronary artery disease. 7. Atrial fibrillation. 8. Hypertension. 9. Congestive heart failure. 10. Gastroesophageal reflux disease. 11. Obstructive sleep apnea (uses CPAP). POSTOPERATIVE DIAGNOSES: 1. Dislodged jejunostomy tube. 2. Need for enteral nutrition. 3. Intra-abdominal abscess with gastric leak. 4. Super morbid obesity (BMI 51). 5. Chronic obstructive pulmonary disease. 6. Coronary artery disease. 7. Atrial fibrillation. 8. Hypertension. 9. Congestive heart failure. 10. Gastroesophageal reflux disease. 11. Obstructive sleep apnea (uses CPAP). PROCEDURE: Laparoscopic-assisted jejunostomy replacement (12-Andorran). ANESTHESIA: General endotracheal anesthesia and local anesthetic. ESTIMATED BLOOD LOSS: 5 mL. SPECIMEN: None. [facility] [place] [address] OPERATIVE REPORT Name: RONNIE CURRY Room #: 352-P ADM IN M.R.#: [id number] Admission: 01/16/18 Attend Phys: Giovanna Paredes Discharge: Date of : 48 Report #: [id number] COMPLICATIONS: None appreciated. INDICATIONS FOR PROCEDURE: This 67-year-old female patient underwent placement of a jejunostomy tube laparoscopically yesterday. Please refer to my operative report from 01/17/2018. One of the bolsters holding the bowel up against the abdominal wall fractured leaving only two bolsters in place. On my exam, the J-tube appeared to have pulled back. The patient was to be sent for a contrast study to determine placement of the tube; however, while she was in the Radiology Department, the tube became completely dislodged. The cuff had been deflated. It was suspected that the T-fasteners caused rupture of the balloon/cuff, allowing it to become completely dislodged. The patient presents now for laparoscopic replacement of her jejunostomy tube. OPERATIVE FINDINGS: Upon entrance into the abdominal cavity, the bowel had pulled completely away from the abdominal wall. While the patient was being prepped on the operating room table, the remaining two bolsters holding the bowel up against the abdominal wall became dislodged as well. Upon entering the abdominal cavity also, there was no evidence for leakage of enteric content into the abdominal cavity. The opening into the bowel was able to be identified. After placement of the transfascial sutures and a 12-Andorran jejunostomy tube through the same opening, the tube was felt to have been passed distally and did not coil within the bowel. The tube flushed easily after its final placement. DESCRIPTION OF PROCEDURE IN DETAIL: After the risks, benefits, and expectations of the operation were discussed in detail with the patient and her family, informed consent was obtained. The patient was identified in the preoperative holding area. She has been receiving scheduled IV antibiotics. She was taken to the Operating Room and she was placed in the supine position. SCDs were placed on the patient's bilateral lower extremities and pneumatic compression was initiated. The patient was then given IV sedation and she was intubated without incident. Her abdomen was prepped and draped in standard sterile fashion. Timeout was performed to identify the correct patient and procedure. The Veress needle was used to insufflate the abdominal cavity through a small supraumbilical incision. After creating pneumoperitoneum, the right lower quadrant incision was reopened. A 5-mm Visiport was placed intraperitoneally with a 0-degree angled laparoscope. An additional 5-mm port was placed in the lower midline through a vertical incision and an 11-mm port was placed in the right lateral abdomen through yesterday's incision. Findings are as noted above. The bowel was run back and the opening into the bowel was identified. There was no evidence for gross spillage of succus. 2-0 silk sutures x 4 were passed into the abdominal cavity. Each suture was used to obtain a seromuscular bite of small bowel at the 12, 3, 6, and 9 o'clock positions in relation to the [address] [address] OPERATIVE REPORT Name: CHELGABINORONNIE VIRAMONTES Room #: 352-P ADM IN M.R.#: [id number] Admission: 01/16/18 Attend Phys: Isaac LombardiAtilio Shaheed Giovanna Discharge: Date of : 48 Report #: [id number] enterotomy. The needles were removed and each limb of each suture was brought through the abdominal wall using the needle-tipped suture grasper. Each of the pairs of sutures was then tagged loosely, exposing the enterotomy. The 12-Andorran jejunostomy was then advanced into the abdominal cavity through the old opening. The tip of the tube was advanced into the enterotomy and advanced distally until the cuff of the balloon had been advanced into the bowel. The balloon was inflated with 3 mL of fluid. Each of the transfascial sutures was then tied in a clockwise fashion to approximate the small bowel to the anterior abdominal wall. The outer flange of the tube was tightened around the tube with a 2-0 nylon suture externally. A small amount of bleeding was present within the abdominal cavity from the adhesions that were sharply divided. 5 mL of FloSeal was applied laparoscopically to this area with good hemostasis. The 11-mm port site fascial opening in the right lateral abdomen was then closed with an 0-PDS suture using the Charles-Garret laparoscopic fascial closure device. The abdominal cavity was then desufflated and the remaining ports were removed. Interrupted subcuticular 4-0 Monocryl sutures and Dermabond were used to close the skin incisions. The patient tolerated the procedure well. She was awakened, extubated, and taken to Recovery Room in stable condition with no apparent intraoperative complications. <ELECTRONICALLY SIGNED> By: Alan Hahn MD, FACS 01/20/18 [id number] Alan Hahn MD, FACS /nt
--- NOTE | ~2018-01-16 | O ---
[facility] [place] [address] OPERATIVE REPORT Name: RONNIE CURRY Room #: 363-P ADM IN M.R.#: [id number] Admission: 01/16/18 Attend Phys: Giovanna Paredes Discharge: Date of : 48 Report #: [id number] THIS REPORT FOR: //name// CC: Dante Manuel MD DATE OF SERVICE: 01/22/2018 SURGEON: Alan Hahn MD GERIATRIC CARE MANAGER: Isaac Milton DO PREOPERATIVE DIAGNOSES: 1. Dislodged jejunostomy tube (second time). 2. Need for enteral nutrition. 3. Intra-abdominal abscess with gastric leak. 4. Super morbid obesity (BMI 51). 5. Chronic obstructive pulmonary disease. 6. Coronary artery disease. 7. Atrial fibrillation. 8. Hypertension. 9. Congestive heart failure. 10. Gastroesophageal reflux disease. 11. Obstructive sleep apnea with CPAP usage. POSTOPERATIVE DIAGNOSES: 1. Dislodged jejunostomy tube (second time). 2. Need for enteral nutrition. 3. Intra-abdominal abscess with gastric leak. 4. Super morbid obesity (BMI 51). 5. Chronic obstructive pulmonary disease. 6. Coronary artery disease. 7. Atrial fibrillation. 8. Hypertension. 9. Congestive heart failure. 10. Gastroesophageal reflux disease. 11. Obstructive sleep apnea with CPAP usage. PROCEDURE: Laparoscopic-assisted jejunostomy placement (18-Turkish red rubber catheter). ANESTHESIA: General endotracheal anesthesia and local anesthetic. ESTIMATED BLOOD LOSS: 5 mL. [facility] [address] [place] [address] OPERATIVE REPORT Name: RONNIE CURRY WANDER Room #: 363-P [facility] IN M.R.#: [id number] Admission: 01/16/18 Attend Phys: Giovanna Paredes Discharge: Date of : 48 Report #: [id number] SPECIMEN: None. COMPLICATIONS: None appreciated. INDICATIONS FOR PROCEDURE: This is a 67-year-old female patient who underwent replacement of jejunostomy tube on 01/18/2018. A J-tube had been placed for malnutrition and need for long-term enteral nutrition after the patient had developed a gastric staple line leak. She is morbidly obese and has a history of a previous vertical stapled gastroplasty and underwent laparoscopic revisional bariatric surgery, the proximal staple line of which had become disrupted. After replacement of her jejunostomy tube (the second tube that was placed), the patient's tube was functional for several days. She was being planned for transfer [facility] a jail facility in [place], [place] at [facility]. While up, the jejunostomy tube became completely dislodged and fell to the floor. There was leakage of enteric content initially. This later became serosanguineous. Interventional Radiology was consulted to replace the jejunostomy tube as her bowel had been sutured to the anterior abdominal wall. The Interventional Radiology was unable to place the tube as contrast flowed around the outside of the bowel. There is a concern that the bowel may have pulled away from the anterior abdominal wall and as such, urgent diagnostic laparoscopy and a jejunostomy replacement is indicated. OPERATIVE FINDINGS: Upon entrance into the abdominal cavity laparoscopically, serosanguineous fluid was present in the lower abdomen with no evidence for enteric leakage or succuss. The loop of jejunum was adherent to the anterior abdominal wall with no evidence for leak or abscess. The tract required dilation and I was ultimately able to place the 18-Turkish red rubber catheter, advancing it distally. After final placement of the catheter, the catheter flushed easily. Intraabdominal adhesions were present from her previous operations and as such, only the visualization port was able to be placed. At the conclusion of the operation, sponge, needle, and instrument counts were correct. DESCRIPTION OF PROCEDURE IN DETAIL: After the risks, benefits and expectations of the operation were discussed in detail with the patient and her family, informed consent was obtained. The patient was identified in the preoperative holding area. She was given IV antibiotics as documented in the chart in line with [facility] metrics. The patient was then taken to the operating room and she was placed in the supine position. SCDs were placed on the patient's bilateral lower extremities and pneumatic compression was initiated. The patient was then given IV sedation and she was intubated without incident. Her abdomen was prepped and draped in the standard sterile fashion. A time-out was performed to identify the correct patient and procedure. I attempted to enter the abdominal cavity through the lower midline [address] [address] OPERATIVE REPORT Name: PATRICIORONNIE WANDER Room #: 363-P ADM IN M.R.#: [id number] Admission: 01/16/18 Attend Phys: Giovanna Paredes Discharge: Date of : 48 Report #: [id number] site; however, I was unable to do so despite using the long trocar. Decision was made to insufflate the abdomen through a Veress needle infraumbilically. After achieving insufflation, the 5 mm Visiport was placed under direct visualization with the 0-degree angled laparoscope. A 30-degree angled laparoscope was then inserted. I attempted to find the port site in the right lower abdomen through the previous port site. I advanced the Visiport under direct visualization; however, the port was not able to be seen due to the abdominal wall thickness. This port was then pulled from the subcutaneous tissue. The Veress needle was visualized and did not cause damage to bowel or surrounding structures. Other operative findings were as noted above. The tract in the subcutaneous tissue was present; however, the bowel opening had sealed off. Using hemostat and later a Pean clamp, the tract into the bowel was able to be dilated. The 18-Turkish catheter was then advanced under direct visualization and was seen to move endoluminally through the bowel wall. The catheter was advanced distally as far as possible. The red rubber catheter was then secured to the skin with 2-0 nylon sutures x 2 at the medial and lateral aspects. The catheter was flushed to ensure patency. There was no leakage of flush seen laparoscopically. The catheter was then plugged. The abdominal cavity was desufflated and the 5 mm lower midline port was removed. Interrupted subcuticular 4-0 Monocryl sutures and Dermabond were used to close the skin incisions. The patient tolerated the procedure well. She was awakened, extubated, and taken to the recovery room in a stable condition with no apparent intraoperative complications. <ELECTRONICALLY SIGNED> By: Alan Hahn MD, FACS 01/23/18 2336 [id number] 14 Alan Hahn MD, FACS /nt
--- NOTE | ~2018-01-16 | EKG ---
[address] [address] ELECTROCARDIOGRAM REPORT Name: RONNIE CURRY Room #: 352-P ADM IN M.R.#: [id number] Admission: 01/16/18 Attend Phys: Giovanna Paredes Discharge: Date of : 48 Report #: [id number] THIS REPORT FOR: //name// [facility] Test Date: 2018-01-17 Test Time: 11:27:51 Pat Name: RONNIE CURRY Department: Room: 352 Gender: F Hoisting Laborer: KIMBERLYN : 1950 Requested By: Sam Toure Order Number: [id number] MD: Mauri Goldberg Measurements Intervals [place] Rate: 86 P: GA: QRS: 9 QRSD: 126 T: 176 QT: 423 QTc: 506 Interpretive Statements Atrial fibrillation Nonspecific intraventricular conduction delay Borderline repolarization abnormality Compared to ECG 12/04/2017 12:09:21 Electronically Signed On 01-18-2018 8:17:25 CDT by Mauri Goldberg [email or web address] <ELECTRONICALLY SIGNED> By: Mauri Goldberg MD 01/18/18 08 1127 26 Mauri Goldberg MD /TOBIAS
--- NOTE | ~2018-01-16 | HC ---
[facility] [place] [address] CONSULTATION Name: RONNIE CURRY Room #: 352-P ADM IN M.R.#: [id number] Admission: 01/16/18 Attend Phys: Giovanna Paredes Discharge: Date of : 48 Report #: [id number] THIS REPORT FOR: //name// CC: Isaac Manuel DATE OF SERVICE: 01/16/2018 TYPE OF REPORT: Infectious disease followup consultation. 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 After discharge, she fell, landed on her stomach. Subsequently, noticed fever and found to have an upper abdominal fluid collection. This was determined related to the gastric sleeve anastomosis disruption. Placed on IV antibiotic therapy including Unasyn. She was seen by Dr. Hunt at [facility] for a stent placement, which was unsuccessful after 2 attempts over the last 2 weeks. She has been on TPN at [facility]. Comes back today for placement of a jejunostomy tube. The patient will require prolonged rest to the surgical site. No fever, chills or sweats. CHRIST drain has put out a [id number] amount of output. She has remained n.p.o. She has a right upper extremity PICC for TPN. ALLERGIES: ATORVASTATIN. MEDICATIONS: As noted on her MAR including Unasyn. PAST MEDICAL HISTORY: Unchanged from previous consultation. FAMILY HISTORY: Unchanged from previous consultation. SOCIAL HISTORY: Unchanged from previous consultation. REVIEW OF SYSTEMS: Ten-point review negative other than what has been described above. PHYSICAL EXAMINATION: VITAL SIGNS: Afebrile and hemodynamically stable. GENERAL: Alert and cooperative. Right upper extremity PICC was unremarkable with no drainage or erythema. CHEST: Clear. HEART: Regular. ABDOMEN: Obese, tender in the epigastric region with a drain in the left upper abdomen. Small amount of serous drainage was in the bulb. No [facility] [address] [place] [address] CONSULTATION Name: CHELGABINORONNIE VIRAMONTES Room #: 352-P ADM IN M.R.#: [id number] Admission: 01/16/18 Attend Phys: Giovanna Paredes Discharge: Date of : 48 Report #: [id number] hepatosplenomegaly or mass appreciated, although she did have fullness in the epigastric region. EXTREMITIES: Unremarkable with no cyanosis or edema. NEUROLOGICAL: Nonfocal with cranial nerves intact. Strength was normal in the lower and upper extremities. Sensation intact. Mood was normal. LABORATORY STUDIES: Sodium 134, potassium 4, bicarbonate 28 and creatinine 1.2. AST 39, ALT 29 and alkaline phosphatase 108. Hemoglobin 11.9; WBC 6.7 and platelet count 167,000. 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 Here now for jejunostomy tube placement. RECOMMENDATIONS: We will continue Unasyn. We would check CT scan of the abdomen and pelvis prior to procedure. Continue antibiotics postop. We will reevaluate following CT scan. Case was discussed with attending and nursing at the bedside. <ELECTRONICALLY SIGNED> By: Kan Hummel MD 01/18/18 1048 1437 10 Kan Hummel MD /nt
[~2018-01-16 12:49] MED LIST changes: +CATAPRES-TTS 20.2 MG TRANSDERM; +ENALAPRILA1.25 MG/M1 IV PUSH; +HYDROCODONE-ACE15 ML PO; +METOPROLOL5 MG/5 M2 IV PUSH; +MORPHINE 44 MG/1 ML IV PUSH; +PROTONIX IV40 MG IV PUSH; +SCOPOLAMINE1 EACH TRANSDERM; +UNASYN 3 GM VIAL3 G1 IVPB
[2018-01-16 13:45] VITALS: BP 148/90
[2018-01-16 14:09] LABS: HEMATOCRIT 36.5 % (37.0-47.0); HEMOGLOBIN 11.9 gm/dL (12.0-15.0); MCH 31.3 pg (26.0-34.0); MCHC 32.7 g/dL (28.0-37.0); MCV 95.5 fL (80.0-100.0); RBC 3.82 mil/uL (4.20-5.00); RDW 16.6 % (10.5-14.5); WBC 6.7 thou/uL (4.0-11.0)
[2018-01-16 14:20] LABS: ALBUMIN 2.6 g/dL (3.4-5.0); CALCIUM 9.5 mg/dL (8.5-10.1); CREATININE 1.2 mg/dL (0.6-1.0); TOTAL BILIRUBIN 0.9 mg/dL (<0.1-1.0); TOTAL PROTEIN 8.3 g/dL (6.4-8.2)
[2018-01-16 17:59] VITALS: BP 142/61
[2018-01-16 19:55] VITALS: BP 149/84
[2018-01-17] VITALS (13 sets, daily range): BP systolic 118–153; BP diastolic 61–87
[2018-01-17 05:30] LABS: HEMOGLOBIN 10.4 gm/dL (12.0-15.0); MCH 31.8 pg (26.0-34.0); MCHC 33.5 g/dL (28.0-37.0); MCV 94.9 fL (80.0-100.0); RBC 3.27 mil/uL (4.20-5.00); RDW 16.6 % (10.5-14.5); WBC 5.4 thou/uL (4.0-11.0)
[2018-01-17 05:41] LABS: CALCIUM 8.8 mg/dL (8.5-10.1); POTASSIUM 3.7 mmol/L (3.5-5.1)
[2018-01-17] MEDS ORDERED: PROTONIX40 M1 IV (17:44)
[2018-01-17] MEDS ORDERED: TPN ELECTROLYTE20 M1 IV (17:46)
[2018-01-17] MEDS ORDERED: SCOPOLAMINE1 EACH TRANSDERM (17:48)
[2018-01-17] MEDS ORDERED: ENOXAPARIN40 MG/0.1 SUBQ (17:49)
[2018-01-17] MEDS ORDERED: INTRALIPID250 ML IVPB (17:52)
[2018-01-17] MEDS ORDERED: TRAZODONE HCL50 MG PO (17:54)
[2018-01-17] MEDS ORDERED: ONDANSETRON HCL4 M2 IV PUSH (17:55)
[2018-01-17] MEDS ORDERED: MSL20MG/ML IV (17:56)
[2018-01-18] VITALS (11 sets, daily range): BP systolic 115–152; BP diastolic 63–76
[2018-01-18 22:52] LABS: ABSOLUTE NEUTROPHILS 5.5 thou/uL (1.4-8.2); BASOPHILS 0.7 % (0.0-2.0); EOSINOPHILS 0.5 % (0.0-3.0); HEMATOCRIT 31.2 % (37.0-47.0); HEMOGLOBIN 10.5 gm/dL (12.0-15.0); LYMPHOCYTES 15.1 % (24.0-44.0); MCH 32.1 pg (26.0-34.0); MCHC 33.6 g/dL (28.0-37.0); MCV 95.6 fL (80.0-100.0); MONOCYTES 7.7 % (1.0-8.0); PLATELET COUNT 145 thou/uL (150-400); RBC 3.27 mil/uL (4.20-5.00); RDW 16.6 % (10.5-14.5); WBC 7.2 thou/uL (4.0-11.0)
[2018-01-18 22:59] LABS: CALCIUM 8.5 mg/dL (8.5-10.1); CREATININE 1.2 mg/dL (0.6-1.0); POTASSIUM 3.7 mmol/L (3.5-5.1)
[2018-01-19 03:22] VITALS: BP 119/64
[2018-01-19 07:16] VITALS: BP 120/62
[2018-01-19 11:26] VITALS: BP 121/59
[2018-01-19 16:17] VITALS: BP 140/65
[2018-01-19 19:37] VITALS: BP 124/62
[2018-01-20 03:35] VITALS: BP 155/85
[2018-01-20 04:36] LABS: HEMATOCRIT 30.9 % (37.0-47.0); HEMOGLOBIN 10.2 gm/dL (12.0-15.0); MCH 31.6 pg (26.0-34.0); MCV 95.6 fL (80.0-100.0); RBC 3.23 mil/uL (4.20-5.00); RDW 16.7 % (10.5-14.5); WBC 6.1 thou/uL (4.0-11.0)
[2018-01-20 04:42] LABS: CALCIUM 7.9 mg/dL (8.5-10.1); CREATININE 0.9 mg/dL (0.6-1.0); POTASSIUM 3.5 mmol/L (3.5-5.1)
[2018-01-20 07:22] VITALS: BP 154/83
[2018-01-20 11:53] VITALS: BP 134/53
[2018-01-20 15:41] VITALS: BP 135/55
[2018-01-20 19:20] VITALS: BP 143/85
[2018-01-21 03:35] VITALS: BP 138/77
[2018-01-21 05:52] LABS: HEMATOCRIT 31.1 % (37.0-47.0); HEMOGLOBIN 10.3 gm/dL (12.0-15.0); MCH 31.7 pg (26.0-34.0); MCHC 33.1 g/dL (28.0-37.0); RBC 3.24 mil/uL (4.20-5.00); RDW 16.7 % (10.5-14.5); WBC 6.8 thou/uL (4.0-11.0)
[2018-01-21 06:06] LABS: CALCIUM 7.6 mg/dL (8.5-10.1); CREATININE 0.7 mg/dL (0.6-1.0); POTASSIUM 3.3 mmol/L (3.5-5.1)
[2018-01-21 07:30] VITALS: BP 128/63
[2018-01-21 18:23] VITALS: BP 133/62
[2018-01-21 19:35] VITALS: BP 132/75
[2018-01-22] VITALS (10 sets, daily range): BP systolic 125–151; BP diastolic 59–80
[2018-01-22] MEDS ORDERED: AUGMENTIN400 MG/53 PER TUBE (10:00)
[2018-01-22] MEDS ORDERED: HYDROCODONE-ACE15 ML PER TUBE (10:01)
[2018-01-22] MEDS ORDERED: PEPCID20 MG PER TUBE (10:02)
[2018-01-23 00:49] VITALS: BP 137/68
[2018-01-23 01:55] VITALS: BP 148/76
[2018-01-23 04:18] VITALS: BP 138/70
[2018-01-23 07:34] VITALS: BP 113/59
[2018-01-23 15:59] VITALS: BP 143/72
[2018-01-23 19:20] VITALS: BP 150/67
[2018-01-24 03:59] VITALS: BP 131/67
[2018-01-24 04:56] LABS: HEMATOCRIT 32.9 % (37.0-47.0); HEMOGLOBIN 10.5 gm/dL (12.0-15.0); MCH 30.8 pg (26.0-34.0); MCHC 32.1 g/dL (28.0-37.0); RBC 3.43 mil/uL (4.20-5.00); RDW 17.4 % (10.5-14.5)
[2018-01-24 05:07] LABS: CREATININE 0.9 mg/dL (0.6-1.0); POTASSIUM 4.4 mmol/L (3.5-5.1)
[2018-01-24 08:34] VITALS: BP 138/63
[2018-01-24 16:19] VITALS: BP 152/76
[2018-01-24 19:40] VITALS: BP 134/73
[2018-01-25 04:55] VITALS: BP 131/57
[2018-01-25 09:26] VITALS: BP 148/74
[2018-01-25 17:43] VITALS: BP 134/69
[2018-01-25 19:24] VITALS: BP 145/58
[2018-01-26 04:08] VITALS: BP 178/86
[2018-01-26 07:44] VITALS: BP 157/89
[2018-01-26 16:37] VITALS: BP 160/78
[2018-01-26 19:49] VITALS: BP 130/65
[2018-01-27 04:00] VITALS: BP 153/63
[2018-01-27 07:19] VITALS: BP 153/76
[2018-01-27 19:50] VITALS: BP 155/78
[2018-01-28 03:05] VITALS: BP 151/84
[2018-01-28 07:30] VITALS: BP 130/73
[2018-01-28 08:11] VITALS: BP 115/78
[2018-01-28 11:21] VITALS: BP 97/63
[2018-01-28 12:25] LABS: HEMATOCRIT 32.6 % (37.0-47.0); HEMOGLOBIN 10.9 gm/dL (12.0-15.0); MCHC 33.5 g/dL (28.0-37.0); MCV 95.7 fL (80.0-100.0); RBC 3.4 mil/uL (4.20-5.00); RDW 17.3 % (10.5-14.5); WBC 7.6 thou/uL (4.0-11.0)
[2018-01-28 15:57] VITALS: BP 144/81
[2018-01-28 19:52] VITALS: BP 127/74
[2018-01-29 04:40] VITALS: BP 145/76
[2018-01-29] MEDS ORDERED: AUGMENTIN400 MG/53 PER TUBE (10:57)
== END 2018-01-29 13:55 | DRG 907 ==
LOC: 3W 12:49
PROVIDERS: Internal Medicine Geriatric Medicine; Registered Nurse; Surgery
PROC: 0DHA3UZ Insertion of Feeding Device into Jejunum, Percutaneous Approach (ICD-10-PCS; principal; 2018-01-17)
PROC: 0DWD4UZ Revision of Feeding Device in Lower Intestinal Tract, Percutaneous Endoscopic Approach (ICD-10-PCS; 2018-01-18)
PROC: 0W9G3ZZ Drainage of Peritoneal Cavity, Percutaneous Approach (ICD-10-PCS; 2018-01-19)
PROC: 0D2DXUZ Change Feeding Device in Lower Intestinal Tract, External Approach (ICD-10-PCS; 2018-01-22)
DX: T85.598A Other mechanical complication of other gastrointestinal prosthetic devices, implants and grafts, initial encounter (principal); K65.1 Peritoneal abscess; K95.81 Infection due to other bariatric procedure; K31.6 Fistula of stomach and duodenum; E44.0 Moderate protein-calorie malnutrition; Z68.43 Body mass index [BMI] 50.0-59.9, adult; T85.528A Displacement of other gastrointestinal prosthetic devices, implants and grafts, initial encounter; E66.01 Morbid (severe) obesity due to excess calories; Y83.8 Other surgical procedures as the cause of abnormal reaction of the patient, or of later complication, without mention of misadventure at the time of the procedure; Y92.238 Other place in hospital as the place of occurrence of the external cause; D63.8 Anemia in other chronic diseases classified elsewhere; B95.2 Enterococcus as the cause of diseases classified elsewhere; I25.10 Atherosclerotic heart disease of native coronary artery without angina pectoris; I11.0 Hypertensive heart disease with heart failure; I50.9 Heart failure, unspecified; K21.9 Gastro-esophageal reflux disease without esophagitis; J44.9 Chronic obstructive pulmonary disease, unspecified; G47.33 Obstructive sleep apnea (adult) (pediatric); I48.0 Paroxysmal atrial fibrillation; Y84.8 Other medical procedures as the cause of abnormal reaction of the patient, or of later complication, without mention of misadventure at the time of the procedure; Z79.899 Other long term (current) drug therapy; Y92.89 Other specified places as the place of occurrence of the external cause; Z88.8 Allergy status to other drugs, medicaments and biological substances; Z82.49 Family history of ischemic heart disease and other diseases of the circulatory system; Z82.3 Family history of stroke
CPT/HCPCS: 10779; 10879; 50010; 50101; 50249; 50386; 50555; 50900; 50962; 51489; 51751; 52265; 53307; 53310; 54022; 54118; 56462; 56525; 56526; 57092; 57145; 62110; 62900; 70005

== ENCOUNTER 2018-02-19 18:01 | Inpatient (IN) | payer OTHER ==
[~2018-02-19] VITALS: Ht 162.6 cm; Wt 132.0 kg
--- NOTE | ~2018-02-19 | EKG ---
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1950 Requested By: Monae Acharya Order Number: [id number] MD: Mauri Goldberg Measurements Intervals [place] Rate: 96 P: NC: QRS: 0 QRSD: 102 T: 190 QT: 359 QTc: 454 Interpretive Statements Atrial fibrillation Low voltage, precordial leads Probable LVH with secondary repol abnrm Compared to ECG 02/19/2018 18:44:26 Low QRS voltage now present Right bundle-branch block no longer present Possible ischemia no longer present Electronically Signed On 02-24-2018 20:33:29 INTERNETWORKING TECHNICIAN by Mauri Goldberg [email or web address] <ELECTRONICALLY SIGNED> By: Mauri Goldberg MD 02/24/182032 3 3 Mauri Goldberg MD /EPI
--- NOTE | ~2018-02-19 | EKG ---
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: ZAG : 1950 Requested By: Kan Tijerina Order Number: [id number] MD: Vj Moise Measurements Intervals [place] Rate: 107 P: SD: QRS: 23 QRSD: 125 T: -79 QT: 379 QTc: 506 Interpretive Statements Atrial fibrillation Right bundle branch block ST and T wave abnormality consider inferior and lateral ischemia Compared to ECG 01/17/2018 11:27:51 Right bundle-branch block now present ST and T wave abnormality is more pronounced Electronically Signed On 02-20-2018 7:44:56 COMMERCIAL MAKEUP ARTIST by Vj Moise [email or web address] <ELECTRONICALLY SIGNED> By: Vj Moise MD, FAC 02/20/18 0744 1844 1844 Vj oMise MD, [facility] /EPI
--- NOTE | ~2018-02-19 | HC ---
[facility] [address] [place] [address] CONSULTATION Name: CHELGABINORONNIE VIRAMONTES Room #: 220-P ADM IN M.R.#: [id number] Admission: 02/19/18 Attend Phys: Yonathan Arnold MD Discharge: Date of : 48 Report #: [id number] THIS REPORT FOR: //name// CC: Koffi Hahn DATE OF SERVICE: 02/20/2018 HISTORY OF PRESENT ILLNESS: The patient was a 67-year-old who I was asked to evaluate concerning urinary tract infection in the setting of gastric fistula. The patient was a 67-year-old who underwent revision laparoscopic sleeve gastrectomy. Postoperatively, developed a gastric fistula. She has had a CHRIST drain placed and received prolonged IV antibiotic therapy followed by Augmentin. Cultures revealed mixed upper GI tract richard. She was seen by Dr. Suarez at [facility] for endoscopic stent placement. She has been seen twice over the last several months with inability for stent to be placed. The patient has a feeding jejunostomy tube. Overall, has been doing reasonably well until 4 days ago when she had onset of abdominal discomfort along with emesis. CHRIST drain started putting out bilious fluid. She has had low-grade fever. Mild dysuria. No hematuria. Pain is mostly in the upper abdomen towards the right. No CVA tenderness. No diarrhea. Admitted to the Emergency Room on 02/19/2018. Urinalysis showed evidence of pyuria and bacteriuria. CT scan showed postoperative changes with a pigtail catheter in the upper abdomen. No definite fluid collection, although there was a small amount of gas present in the region. The patient was placed on ceftriaxone. She has defervesced. Nausea and vomiting has resolved. CHRIST output remains dark in color. REVIEW OF SYSTEMS: CONSTITUTIONAL: As noted above. HEENT: No visual changes, auditory changes, headaches. RESPIRATORY: Negative. CARDIOVASCULAR: Negative. GASTROINTESTINAL: As above. GENITOURINARY: As above. MUSCULOSKELETAL: Negative. SKIN: Negative. NEUROLOGIC: Negative. PSYCHIATRIC: Negative. ENDOCRINE: Negative. HEMATOLOGIC AND LYMPHATIC: Negative. ALLERGIES: ATORVASTATIN. MEDICATIONS: As noted on her MAR, now on ceftriaxone. She was previously on Augmentin. [address] [address] CONSULTATION Name: RONNIE CURRY Room #: 220-P [facility] IN [facility].#: [id number] Admission: 02/19/18 Attend Phys: Yonathan Arnold MD Discharge: Date of : 48 Report #: [id number] FAMILY HISTORY: Coronary artery disease, stroke. SOCIAL HISTORY: Nonsmoker, no significant alcohol intake. PHYSICAL EXAMINATION: GENERAL APPEARANCE: She was alert, cooperative, pleasant, in no acute distress. Obese, appeared her stated age. VITAL SIGNS: Afebrile and hemodynamically stable. HEENT: Eyes, without conjunctivitis or scleral icterus. Mouth without mucositis or lesion. NECK: Supple, with no thyromegaly or mass. LUNGS: Clear. HEART: Regular, without murmur. ABDOMEN: Soft. Upper abdominal CHIRST drain without surrounding drainage. There was thin relatively clear fluid in the bulb with a brown tint to it. Feeding jejunostomy tube was unremarkable with no drainage. No appreciable mass. Tenderness mostly in the epigastric region over toward the right. No hepatosplenomegaly. RECTAL: Not performed. BACK: Nontender with no CVA tenderness. EXTREMITIES: No edema or cyanosis. NEUROLOGIC: Cranial nerves intact. Strength in the lower extremities and upper extremities normal with normal sensation both upper and lower extremities. SKIN: Without rash or decubitus. LYMPH: No palpable adenopathy. Mood normal. LABORATORY STUDIES: Reviewed with urine culture pending. Urinalysis as above. Creatinine 1, AST 40, ALT 32, alkaline phosphatase 107, bilirubin 1, lipase 138. Hemoglobin 13.8, WBC 8.8, platelet count 182,000. Chest x-ray is clear. Blood and urine cultures pending. IMPRESSION: A 67-year-old with gastric fistula. The tract remains contained. No evidence of peritonitis. I have discussed with General Surgery. Planning a contrast study today to further evaluate the area, hopefully would be amenable for endoscopic stenting. Urinary tract infection, cystitis, await identification of urine culture. I am suspecting that this may have triggered her nausea and vomiting. RECOMMENDATIONS: We will continue with IV antibiotic therapy. Await contrast study. <ELECTRONICALLY SIGNED> By: Kan Hummel MD 02/20/18 2223 174 29 Kan Hummel MD /nt
[~2018-02-19 18:01] MED LIST changes: +AUGMENTIN400 MG/53 PER TUBE; +ENOXAPARIN40 MG/0.1 SUBQ; +HYDROCODONE-ACE15 ML PER TUBE; +INTRALIPID250 ML IVPB; +MSL20MG/ML IV; +ONDANSETRON HCL4 M2 IV PUSH; +PEPCID20 MG PER TUBE; +PROTONIX40 M1 IV; +TPN ELECTROLYTE20 M1 IV; +TRAZODONE HCL50 MG PO
[2018-02-19 18:04] VITALS: BP 187/98
[2018-02-19 20:48] LABS: BASOPHILS 0.7 % (0.0-2.0); EOSINOPHILS 4.8 % (0.0-3.0); HEMATOCRIT 41.6 % (37.0-47.0); HEMOGLOBIN 13.8 gm/dL (12.0-15.0); LYMPHOCYTES 27.5 % (24.0-44.0); MCHC 33.2 g/dL (28.0-37.0); MCV 93.4 fL (80.0-100.0); PLATELET COUNT 182 thou/uL (150-400); RBC 4.45 mil/uL (4.20-5.00); RDW 16.1 % (10.5-14.5); WBC 8.8 thou/uL (4.0-11.0)
[2018-02-19 20:56] LABS: ANION GAP 11 mmol/L (7-16); BUN 25 mg/dL (7-18); CALCIUM 9.5 mg/dL (8.5-10.1); CHLORIDE 102 mmol/L (98-107); CO2 24 mmol/L (21-32); GLUCOSE 114 mg/dL (74-106); POTASSIUM 4.3 mmol/L (3.5-5.1); SODIUM 137 mmol/L (136-145)
[2018-02-19 21:05] LABS: ALBUMIN 2.8 g/dL (3.4-5.0); LIPASE 138 U/L (73-393); SGOT 40 U/L (15-37); SGPT 32 U/L (30-65); TOTAL PROTEIN 8.5 g/dL (6.4-8.2); TROPONIN-I <0.06 ng/mL (<0.06)
[2018-02-19 21:49] VITALS: BP 162/79
[2018-02-19 22:01] VITALS: BP 162/79
[2018-02-19 22:35] VITALS: BP 137/81
[2018-02-20 00:54] LABS: URINE BILIRUBIN NEGATIVE (Negative); URINE BLOOD NEGATIVE (Negative); URINE CLARITY CLEAR; URINE COLOR YELLOW; URINE GLUCOSE-RANDOM* NEGATIVE (Negative); URINE KETONES NEGATIVE (Negative); URINE PROTEIN (DIPSTICK) NEGATIVE (Negative); URINE UROBILINOGEN 0.2 E.U./dl (0.2-1.0)
[2018-02-20 00:56] LABS: URINE LEUKOCYTES-REFLEX 1+ (Negative); URINE NITRITE-REFLEX POSITIVE (Negative)
[2018-02-20 01:04] LABS: BACTERIA-REFLEX >30 Many /HPF (None Seen); CASTS None Seen /LPF (None Seen); CRYSTALS None Seen /LPF (None Seen); MUCUS None Seen strn/LPF (None Seen); SQUAMOUS 0-3 Few /LPF (0-3); URINE RBC None Seen /HPF (0-2); URINE WBC-REFLEX >25 Many /HPF (0-5); WBC CLUMPS Occasional (None Seen)
[2018-02-20 03:12] LABS: FOLIC ACID 15.4 ng/mL (8.6-58.9)
[2018-02-20 03:57] VITALS: BP 151/69
[2018-02-20 09:31] VITALS: BP 146/83
[2018-02-20 20:00] VITALS: BP 152/64
[2018-02-21 07:15] VITALS: BP 147/77
[2018-02-21 09:32] LABS: HEMATOCRIT 34.2 % (37.0-47.0); MCH 31.3 pg (26.0-34.0); MCHC 33.3 g/dL (28.0-37.0); MCV 93.9 fL (80.0-100.0); RBC 3.64 mil/uL (4.20-5.00)
[2018-02-21 09:33] LABS: HEMOGLOBIN 11.4 gm/dL (12.0-15.0)
[2018-02-21 09:44] LABS: ALBUMIN 2.3 g/dL (3.4-5.0); CALCIUM 8.3 mg/dL (8.5-10.1); CREATININE 0.9 mg/dL (0.6-1.0); MAGNESIUM 1.9 mg/dL (1.8-2.4); TOTAL BILIRUBIN 0.5 mg/dL (<0.1-1.0); TOTAL PROTEIN 6.9 g/dL (6.4-8.2)
[2018-02-21 19:29] VITALS: BP 156/71
[2018-02-22 07:06] LABS: CALCIUM 8.4 mg/dL (8.5-10.1); CREATININE 0.8 mg/dL (0.6-1.0); MAGNESIUM 1.7 mg/dL (1.8-2.4); POTASSIUM 3.8 mmol/L (3.5-5.1)
[2018-02-22 07:13] LABS: HEMATOCRIT 33.4 % (37.0-47.0); HEMOGLOBIN 11.1 gm/dL (12.0-15.0); MCHC 33.2 g/dL (28.0-37.0); MCV 93.2 fL (80.0-100.0); RBC 3.58 mil/uL (4.20-5.00); RDW 15.8 % (10.5-14.5); WBC 6.5 thou/uL (4.0-11.0)
[2018-02-22 08:08] LABS: % SATURATION 17 % (20-39); ABSOLUTE RETIC COUNT 0.1023 10^6/uL; IRON 44 ug/dL (50-170); OBSERVED RETIC COUNT 2.82 % (0.6-2.6); TIBC 260 ug/dL (250-450)
[2018-02-22 08:12] VITALS: BP 154/73
[2018-02-22 19:48] VITALS: BP 190/86
[2018-02-23 06:26] LABS: HEMATOCRIT 33.8 % (37.0-47.0); HEMOGLOBIN 11.3 gm/dL (12.0-15.0); MCH 31.1 pg (26.0-34.0); MCHC 33.5 g/dL (28.0-37.0); MCV 92.7 fL (80.0-100.0); RBC 3.65 mil/uL (4.20-5.00); RDW 15.8 % (10.5-14.5)
[2018-02-23 06:34] LABS: CALCIUM 8.1 mg/dL (8.5-10.1); CREATININE 0.8 mg/dL (0.6-1.0); MAGNESIUM 1.7 mg/dL (1.8-2.4); POTASSIUM 3.8 mmol/L (3.5-5.1)
[2018-02-23 07:55] VITALS: BP 153/91
[2018-02-23 19:29] VITALS: BP 185/80
[2018-02-24 07:29] LABS: HEMATOCRIT 35.7 % (37.0-47.0); HEMOGLOBIN 11.8 gm/dL (12.0-15.0); MCH 30.8 pg (26.0-34.0); MCV 93.4 fL (80.0-100.0); RBC 3.82 mil/uL (4.20-5.00); WBC 5.4 thou/uL (4.0-11.0)
[2018-02-24 07:30] VITALS: BP 144/80
[2018-02-24 07:43] LABS: CALCIUM 9.1 mg/dL (8.5-10.1); CREATININE 0.9 mg/dL (0.6-1.0); MAGNESIUM 1.8 mg/dL (1.8-2.4); POTASSIUM 3.6 mmol/L (3.5-5.1)
[2018-02-24 21:26] VITALS: BP 162/86
[2018-02-25 07:24] LABS: HEMATOCRIT 36.6 % (37.0-47.0); HEMOGLOBIN 12.2 gm/dL (12.0-15.0); MCH 31.2 pg (26.0-34.0); MCHC 33.4 g/dL (28.0-37.0); MCV 93.5 fL (80.0-100.0); RBC 3.91 mil/uL (4.20-5.00); RDW 16.1 % (10.5-14.5); WBC 5.4 thou/uL (4.0-11.0)
[2018-02-25 07:25] VITALS: BP 161/81
[2018-02-25 07:44] LABS: CREATININE 0.8 mg/dL (0.6-1.0); POTASSIUM 3.8 mmol/L (3.5-5.1)
[2018-02-25 12:39] VITALS: BP 161/81
[2018-02-25 19:13] VITALS: BP 175/91
[2018-02-26 07:15] VITALS: BP 159/81
[2018-02-26] MEDS ORDERED: CIPRO500 MG/5 M PO (13:50)
== END 2018-02-26 16:42 | disposition home health service (06) | DRG 871 ==
LOC: ER 18:01 → EROBS 20:59 → 4E 20:59 → SICU 02-20 18:15 → ENTRNSPT 02-26 15:09 → EDTRNSPTSTS 02-26 15:11 → SICU 02-26 16:42
PROVIDERS: Emergency Medicine; Internal Medicine; Nurse Practitioner Family; Surgery
DX: A41.9 Sepsis, unspecified organism (principal); E43 Unspecified severe protein-calorie malnutrition; K95.89 Other complications of other bariatric procedure; N39.0 Urinary tract infection, site not specified; Z68.42 Body mass index [BMI] 45.0-49.9, adult; N76.4 Abscess of vulva; E46 Unspecified protein-calorie malnutrition; K31.6 Fistula of stomach and duodenum; E11.9 Type 2 diabetes mellitus without complications; I48.91 Unspecified atrial fibrillation; Y84.8 Other medical procedures as the cause of abnormal reaction of the patient, or of later complication, without mention of misadventure at the time of the procedure; E66.01 Morbid (severe) obesity due to excess calories; J44.9 Chronic obstructive pulmonary disease, unspecified; D64.9 Anemia, unspecified; E53.8 Deficiency of other specified B group vitamins; I25.10 Atherosclerotic heart disease of native coronary artery without angina pectoris; I11.0 Hypertensive heart disease with heart failure; I50.9 Heart failure, unspecified; G47.00 Insomnia, unspecified; K21.9 Gastro-esophageal reflux disease without esophagitis; G47.33 Obstructive sleep apnea (adult) (pediatric); E86.0 Dehydration; M62.84 Sarcopenia; Z98.84 Bariatric surgery status; Z79.899 Other long term (current) drug therapy; Z88.8 Allergy status to other drugs, medicaments and biological substances
CPT/HCPCS: 10084; 15002

== ENCOUNTER 2018-02-26 16:54 | Observation (INO) | payer OTHER ==
[~2018-02-26] VITALS: Ht 162.6 cm; Wt 131.5 kg
[~2018-02-26 16:54] MED LIST changes: +CIPRO500 MG/5 M PO
[2018-02-26 19:35] VITALS: BP 183/92
[2018-02-26 22:45] VITALS: BP 139/74
[2018-02-27 07:15] VITALS: BP 134/72
[2018-02-27 07:37] LABS: HEMATOCRIT 35.2 % (37.0-47.0); HEMOGLOBIN 11.8 gm/dL (12.0-15.0); MCH 31.2 pg (26.0-34.0); MCHC 33.5 g/dL (28.0-37.0); MCV 93.1 fL (80.0-100.0); RBC 3.78 mil/uL (4.20-5.00); RDW 15.9 % (10.5-14.5); WBC 4.7 thou/uL (4.0-11.0)
[2018-02-27 07:45] LABS: CREATININE 0.8 mg/dL (0.6-1.0); MAGNESIUM 1.8 mg/dL (1.8-2.4); POTASSIUM 3.6 mmol/L (3.5-5.1)
[2018-02-27 11:42] VITALS: BP 134/72
== END 2018-02-27 15:56 | disposition home health service (06) ==
LOC: SICU 16:54 → ENTRNSPT 02-27 15:48 → SICU 02-27 15:56
PROVIDERS: Internal Medicine
DX: K91.89 Other postprocedural complications and disorders of digestive system (principal); K65.1 Peritoneal abscess; N39.0 Urinary tract infection, site not specified; I48.91 Unspecified atrial fibrillation; E11.9 Type 2 diabetes mellitus without complications; K21.9 Gastro-esophageal reflux disease without esophagitis; J44.9 Chronic obstructive pulmonary disease, unspecified; I11.0 Hypertensive heart disease with heart failure; I50.9 Heart failure, unspecified; I25.10 Atherosclerotic heart disease of native coronary artery without angina pectoris; G47.33 Obstructive sleep apnea (adult) (pediatric); K31.6 Fistula of stomach and duodenum; Z79.899 Other long term (current) drug therapy; Z98.84 Bariatric surgery status; Z79.4 Long term (current) use of insulin; Z98.890 Other specified postprocedural states; Z72.89 Other problems related to lifestyle
CPT/HCPCS: 15040; 15041; 15046; 15047

== ENCOUNTER 2018-03-01 20:44 | Emergency (ER) | payer OTHER ==
[~2018-03-01] VITALS: Ht 162.6 cm; Wt 131.1 kg
[2018-03-01 22:16] VITALS: BP 200/98
== END 2018-03-01 22:16 | disposition home or self-care (01) ==
LOC: ER 20:44
DX: Z43.1 Encounter for attention to gastrostomy (principal); E11.9 Type 2 diabetes mellitus without complications; I48.91 Unspecified atrial fibrillation; Z88.8 Allergy status to other drugs, medicaments and biological substances

== ENCOUNTER → 2018-11-26 | Outpatient (CLI) | payer OTHER ==
[~2018-11-26] VITALS: Ht 162.6 cm; Wt 112.0 kg
[~2018-11-26] MED LIST changes: +LOTENSIN10 MG PO; +NORVASC10 MG PO; +OMEPRAZOLE40 MG PO; +PACERONE 200 M200 M1 PO; +VENTOLIN HFA 1818 GM INH; +ZANAFLEX4 MG PO
--- NOTE | ~2018-11-26 | EKG ---
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: Harjit MONTALVO : 1950 Requested By: Mauri Goldberg Order Number: [id number] MD: Measurements Intervals [place] Rate: 49 P: 30 SD: 187 QRS: 12 QRSD: 115 T: 137 QT: 572 QTc: 517 Interpretive Statements Sinus bradycardia Atrial premature complex Nonspecific intraventricular conduction delay Borderline repolarization abnormality Compared to ECG 02/23/2018 09:34:00 Atrial premature complex(es) now present Intraventricular conduction delay now present Atrial fibrillation no longer present [email or web address] By: 0849 0849 Epiphany Epiphany, /EPI
[2018-11-26 07:55] VITALS: BP 141/74
[2018-11-26 08:08] LABS: HEMATOCRIT 36.2 % (37.0-47.0); HEMOGLOBIN 11.7 gm/dL (12.0-15.0); MCH 26.6 pg (26.0-34.0); MCHC 32.3 g/dL (28.0-37.0); MCV 82.3 fL (80.0-100.0); RBC 4.4 mil/uL (4.20-5.00); RDW 16.5 % (10.5-14.5); WBC 6.3 thou/uL (4.0-11.0)
[2018-11-26 08:17] LABS: CALCIUM 9.3 mg/dL (8.5-10.1); CREATININE 1.1 mg/dL (0.6-1.0); POTASSIUM 4.3 mmol/L (3.5-5.1)
[2018-11-26 08:20] LABS: APTT 36.2 Seconds (24.5-32.8); INR 1.2; PROTIME 12.4 Seconds (9.3-11.4)
[2018-11-26 08:23] LABS: ALBUMIN 3.2 g/dL (3.4-5.0); DIRECT BILIRUBIN 0.2 mg/dL (<0.1-0.3); TOTAL BILIRUBIN 0.5 mg/dL (<0.1-1.0); TOTAL PROTEIN 7.6 g/dL (6.4-8.2)
--- NOTE | 2018-12-17 17:04 | P ---
[facility] [place] [address] [place] [address] PROCEDURE REPORT Name: PATRICIORONNIE VIRAMONTES Room #: REG [facility]#: [id number] Admission: 11/26/18 Attend Phys: Mauri Goldberg MD Discharge: Date of : 48 Report #: [id number] THIS REPORT FOR: //name// CC: Koffi Goldberg PROCEDURE: Cardioversion. PREOPERATIVE DIAGNOSIS: Atrial fibrillation. POSTOPERATIVE DIAGNOSIS: Atrial fibrillation. DESCRIPTION OF PROCEDURE: The patient underwent informed consent. She was prepped and draped in a standard fashion. Anesthesiology service sedated the patient. Once sedated, she underwent a 200 joule cardioversion, which was unsuccessful. A repeat one resulted in sinus rhythm. There were no procedure related complications. CONCLUSIONS: Successful DC cardioversion with mu-ism of sinus rhythm. <ELECTRONICALLY SIGNED> By: Mauri Goldberg MD 12/17/18 1704 1420 1458 Mauri Goldberg MD /nt
== END | disposition home or self-care (01) ==
LOC: CATH 07:24 → TBA 07:25 → CATH 12:34
PROVIDERS: Internal Medicine Cardiovascular Disease
DX: I48.91 Unspecified atrial fibrillation (principal); I11.0 Hypertensive heart disease with heart failure; I50.9 Heart failure, unspecified; J44.9 Chronic obstructive pulmonary disease, unspecified; E11.9 Type 2 diabetes mellitus without complications; E66.01 Morbid (severe) obesity due to excess calories; Z68.43 Body mass index [BMI] 50.0-59.9, adult; Z82.49 Family history of ischemic heart disease and other diseases of the circulatory system; Z98.890 Other specified postprocedural states; Z98.84 Bariatric surgery status; Z79.01 Long term (current) use of anticoagulants; Z79.899 Other long term (current) drug therapy; K21.9 Gastro-esophageal reflux disease without esophagitis; Z88.8 Allergy status to other drugs, medicaments and biological substances; Z79.82 Long term (current) use of aspirin
CPT/HCPCS: 62110; 62900

== ENCOUNTER → 2019-04-18 | Outpatient (CLI) | payer OTHER ==
[~2019-04-18] MED LIST changes: +BENAZEPRIL HCL40 MG PO; +BYSTOLIC 5 MG5 M1 PO
== END ==
LOC: SJCVC 11:25
DX: I25.10 Atherosclerotic heart disease of native coronary artery without angina pectoris (principal); I45.4 Nonspecific intraventricular block; I48.19 Other persistent atrial fibrillation; I11.0 Hypertensive heart disease with heart failure; I50.9 Heart failure, unspecified; R60.9 Edema, unspecified; J44.9 Chronic obstructive pulmonary disease, unspecified; K21.9 Gastro-esophageal reflux disease without esophagitis; E78.5 Hyperlipidemia, unspecified; Z79.82 Long term (current) use of aspirin; Z79.899 Other long term (current) drug therapy

== ENCOUNTER 2019-05-04 16:05 | Emergency (ER) | payer OTHER ==
[~2019-05-04] VITALS: Ht 162.6 cm; Wt 112.5 kg
[~2019-05-04 16:05] MED LIST changes: -BENAZEPRIL HCL40 MG PO; -BYSTOLIC 5 MG5 M1 PO
[2019-05-04 17:38] LABS: ABSOLUTE NEUTROPHILS 3.6 thou/uL (1.4-8.2); BASOPHILS 1.3 % (0.0-2.0); EOSINOPHILS 2.9 % (0.0-3.0); HEMATOCRIT 38.1 % (37.0-47.0); HEMOGLOBIN 11.9 gm/dL (12.0-15.0); LYMPHOCYTES 29.3 % (24.0-44.0); MCH 25.8 pg (26.0-34.0); MCHC 31.1 g/dL (28.0-37.0); MCV 82.8 fL (80.0-100.0); MONOCYTES 9.3 % (1.0-8.0); PLATELET COUNT 165 thou/uL (150-400); POLYS 57.2 % (36.0-66.0); RBC 4.61 mil/uL (4.20-5.00); RDW 16.9 % (10.5-14.5); WBC 6.2 thou/uL (4.0-11.0)
[2019-05-04 17:48] LABS: CALCIUM 8.9 mg/dL (8.5-10.1); CREATININE 1.1 mg/dL (0.6-1.0); POTASSIUM 4.4 mmol/L (3.5-5.1)
[2019-05-04 17:55] LABS: ALBUMIN 3.2 g/dL (3.4-5.0); TOTAL BILIRUBIN 0.3 mg/dL (<0.1-1.0); TOTAL PROTEIN 7.5 g/dL (6.4-8.2)
[2019-05-04] MEDS ORDERED: BENAZEPRIL HCL40 MG PO (18:19)
[2019-05-04] MEDS ORDERED: BYSTOLIC 5 MG5 M1 PO (18:25)
[2019-05-04 18:59] VITALS: BP 183/81
--- NOTE | 2019-05-05 07:55 | EKG ---
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 : 1950 Requested By: Troy Paredes Order Number: [id number] MD: Vj Moise Measurements Intervals [place] Rate: 67 P: ND: QRS: 14 QRSD: 112 T: -29 QT: 467 QTc: 493 Interpretive Statements Atrial fibrillation Nonspecific ST and T wave abnormality Borderline prolonged QT interval Compared to ECG 11/26/2018 08:49:30 Atrial fibrillation has replaced sinus bradycardia Electronically Signed On 05-05-2019 7:55:16 ASSOCIATE PROFESSOR OF MUSICOLOGY by Vj Moise [email or web address] <ELECTRONICALLY SIGNED> By: Vj Moise MD, [facility] 05/05/19 0755 46 46 Vj Moise MD, [facility] /EPI
== END 2019-05-04 18:35 | disposition home or self-care (01) ==
LOC: ER 16:05
PROVIDERS: Emergency Medicine
DX: I10 Essential (primary) hypertension (principal); I48.91 Unspecified atrial fibrillation; I50.9 Heart failure, unspecified; E11.9 Type 2 diabetes mellitus without complications; E66.9 Obesity, unspecified; Z68.41 Body mass index [BMI] 40.0-44.9, adult; Z88.8 Allergy status to other drugs, medicaments and biological substances

== ENCOUNTER → 2019-10-17 | Outpatient (CLI) | payer OTHER ==
[~2019-10-17] MED LIST changes: +BENAZEPRIL HCL40 MG PO; +BYSTOLIC 5 MG5 M1 PO
== END ==
LOC: SJCVC 10:53
PROVIDERS: ATTEND Internal Medicine Cardiovascular Disease
DX: R94.31 Abnormal electrocardiogram [ECG] [EKG] (principal); I25.10 Atherosclerotic heart disease of native coronary artery without angina pectoris; I48.91 Unspecified atrial fibrillation; R00.1 Bradycardia, unspecified; I10 Essential (primary) hypertension

== ENCOUNTER → 2019-10-31 | Outpatient (CLI) | payer OTHER | LOC: SJCVCIMAG 06:58 | PROVIDERS: ATTEND Internal Medicine Cardiovascular Disease | DX: I48.91 Unspecified atrial fibrillation (principal); I49.3 Ventricular premature depolarization; I25.10 Atherosclerotic heart disease of native coronary artery without angina pectoris; I10 Essential (primary) hypertension; G47.33 Obstructive sleep apnea (adult) (pediatric); Z79.899 Other long term (current) drug therapy ==

== ENCOUNTER → 2019-12-23 | Outpatient (CLI) | payer OTHER | LOC: SJCVC 10:48 | PROVIDERS: ATTEND Internal Medicine Cardiovascular Disease | DX: I48.91 Unspecified atrial fibrillation (principal); R94.31 Abnormal electrocardiogram [ECG] [EKG]; I25.10 Atherosclerotic heart disease of native coronary artery without angina pectoris; I10 Essential (primary) hypertension; I63.10 Cerebral infarction due to embolism of unspecified precerebral artery; R60.9 Edema, unspecified; K21.9 Gastro-esophageal reflux disease without esophagitis; E66.01 Morbid (severe) obesity due to excess calories; I26.99 Other pulmonary embolism without acute cor pulmonale; Z79.899 Other long term (current) drug therapy ==

== ENCOUNTER → 2020-03-11 | Outpatient (CLI) | payer OTHER | LOC: SJCVC 13:01 | PROVIDERS: ATTEND Internal Medicine Cardiovascular Disease | DX: I48.21 Permanent atrial fibrillation (principal); I45.10 Unspecified right bundle-branch block; R94.31 Abnormal electrocardiogram [ECG] [EKG]; I25.10 Atherosclerotic heart disease of native coronary artery without angina pectoris; J44.9 Chronic obstructive pulmonary disease, unspecified; I10 Essential (primary) hypertension; G47.33 Obstructive sleep apnea (adult) (pediatric); E78.5 Hyperlipidemia, unspecified; K21.9 Gastro-esophageal reflux disease without esophagitis; E66.01 Morbid (severe) obesity due to excess calories; Z82.49 Family history of ischemic heart disease and other diseases of the circulatory system; Z79.899 Other long term (current) drug therapy; Z79.82 Long term (current) use of aspirin; Z95.5 Presence of coronary angioplasty implant and graft ==

== ENCOUNTER → 2020-05-07 | Outpatient (CLI) | payer OTHER | LOC: SJCVC 10:27 | PROVIDERS: ATTEND Internal Medicine Cardiovascular Disease | DX: R94.31 Abnormal electrocardiogram [ECG] [EKG] (principal); I48.21 Permanent atrial fibrillation; I25.10 Atherosclerotic heart disease of native coronary artery without angina pectoris; I11.0 Hypertensive heart disease with heart failure; I50.9 Heart failure, unspecified; E11.9 Type 2 diabetes mellitus without complications; I63.10 Cerebral infarction due to embolism of unspecified precerebral artery; R60.9 Edema, unspecified; J44.9 Chronic obstructive pulmonary disease, unspecified; K21.9 Gastro-esophageal reflux disease without esophagitis; E66.01 Morbid (severe) obesity due to excess calories; Z90.49 Acquired absence of other specified parts of digestive tract; Z96.653 Presence of artificial knee joint, bilateral; Z98.890 Other specified postprocedural states; Z88.8 Allergy status to other drugs, medicaments and biological substances; Z79.82 Long term (current) use of aspirin; Z79.899 Other long term (current) drug therapy; Z82.49 Family history of ischemic heart disease and other diseases of the circulatory system ==

== ENCOUNTER → 2020-08-20 | Outpatient (CLI) | payer OTHER | LOC: SJCVCIMAG 10:40 | PROVIDERS: ATTEND Internal Medicine Cardiovascular Disease | DX: I35.8 Other nonrheumatic aortic valve disorders (principal); I11.0 Hypertensive heart disease with heart failure; I50.9 Heart failure, unspecified; R94.31 Abnormal electrocardiogram [ECG] [EKG]; I25.10 Atherosclerotic heart disease of native coronary artery without angina pectoris; I48.91 Unspecified atrial fibrillation; R60.9 Edema, unspecified; R06.00 Dyspnea, unspecified; E11.9 Type 2 diabetes mellitus without complications; J44.9 Chronic obstructive pulmonary disease, unspecified; K21.9 Gastro-esophageal reflux disease without esophagitis; E66.01 Morbid (severe) obesity due to excess calories; G47.30 Sleep apnea, unspecified; Z68.43 Body mass index [BMI] 50.0-59.9, adult; Z90.49 Acquired absence of other specified parts of digestive tract; Z98.890 Other specified postprocedural states; Z88.8 Allergy status to other drugs, medicaments and biological substances; Z79.82 Long term (current) use of aspirin; Z79.899 Other long term (current) drug therapy; Z86.718 Personal history of other venous thrombosis and embolism; Z82.49 Family history of ischemic heart disease and other diseases of the circulatory system ==

== ENCOUNTER → 2021-03-25 | Outpatient (CLI) | payer OTHER | LOC: SJCVC 12:21 | PROVIDERS: ATTEND Internal Medicine Cardiovascular Disease | DX: I25.10 Atherosclerotic heart disease of native coronary artery without angina pectoris (principal); I48.91 Unspecified atrial fibrillation; I10 Essential (primary) hypertension; R60.9 Edema, unspecified; I63.10 Cerebral infarction due to embolism of unspecified precerebral artery; Z88.8 Allergy status to other drugs, medicaments and biological substances; Z79.82 Long term (current) use of aspirin; Z79.899 Other long term (current) drug therapy; Z82.49 Family history of ischemic heart disease and other diseases of the circulatory system; R00.1 Bradycardia, unspecified; Z72.89 Other problems related to lifestyle; I45.10 Unspecified right bundle-branch block; R94.31 Abnormal electrocardiogram [ECG] [EKG] ==